=== PATIENT | female | born 1985 | race Caucasian/White ===

== ENCOUNTER → 2018-01-12 14:11 | Outpatient (CLI) | payer BC, SELFPAY ==
--- NOTE | 2018-01-12 14:17 | XR_ITS ---
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 The third from the bottom screw is not flush with the bone plate. It is unknown whether this is something new or has been present since the surgery as no old films are available for review. A lucency is not evident medial to the tip of this screw. Correlation with old films are needed. The SI joints have an unremarkable appearance IMPRESSION: 1. Unremarkable SI joints. 2. Bone plate along the left ilium and acetabulum as described above
--- NOTE | 2018-01-12 14:17 | XR_ITS ---
XR pelvis 1-2V HISTORY: Fall with injury and pain ITS.REASON: PELVIS VIEWS FOR INJURY ORDERING PHYSICIAN: Kvng Cook MD PATIENT AGE: 32 years Comparison: None FINDINGS: Prior ORIF of the left pelvis with a bone plate present along the lower ileum overlying the acetabulum and upper ischium and the third from the bottom screw of the plate is not flush with the plate and could be related to distraction or Meylan be related to the postoperative appearance. There are no old films available for review. Otherwise negative. IMPRESSION: Left-sided bone plate present as described above with possible distraction of the third from the bottom screw. Correlation with old films are needed
== END ==
PROVIDERS: Visit Provider Obstetrics & Gynecology
DX: S38.1XXA Crushing injury of abdomen, lower back, and pelvis, initial encounter (principal)
CPT/HCPCS: 72170; 72202

== ENCOUNTER → 2018-06-05 11:21 | Outpatient (CLI) | payer BC, SELFPAY ==
[2018-06-05 11:59] LABS: Basophils # 0.1 K/mm3 (0-0.2); Basophils % 0.6 % (0.1-2.0); Eosinophils # 0.2 K/mm3 (0.0-0.4); Eosinophils % 3.2 % (0.1-12.0); Hematocrit 39.7 % (37.0-47.0); Hemoglobin 13.4 g/dL (12.2-16.2); Lymphocytes # 1.9 K/mm3 (0.7-4.5); Lymphocytes % 24.6 % (10-50); Mean Corpuscular HGB Conc 33.9 g/dL (31.8-35.4); Mean Corpuscular Hemoglobin 32.3 pg (27.0-31.2); Mean Corpuscular Volume 95.3 fl (81-99); Mean Platelet Volume 7.7 fl (7.4-10.4); Monocytes # 0.6 K/mm3 (0.1-1.0); Monocytes % 8.2 % (1.7-9.3); Neutrophils # 4.9 K/mm3 (1.8-7.8); Neutrophils % 63.4 % (37.0-80.0); Platelet Count 323 K/mm3 (142-424); Red Blood Count 4.16 M/mm3 (4.20-5.40); Red Cell Distribution Width 12.3 % (11.5-17.5); White Blood Count 7.7 K/mm3 (4.8-10.8)
[2018-06-05 14:19] LABS: Thyroid Stimulating Hormone 2.28 uIU/ml (0.358-3.740)
[2018-06-05 16:24] LABS: Amphetamine/Metha Screen,Urine Negative ng/mL (<1000); Barbiturates Screen,Urine Negative ng/mL (<200); Benzodiazepines Screen,Urine Negative ng/mL (<200); Cannabinoid Screen,Urine Negative ng/mL (<50); Cocaine Screen,Urine Negative ng/mL (<300); Methadone Screen,Urine Negative ng/mL (<300); Opiate Screen,Urine Negative ng/mL (<300); Phencyclidine Screen,Urine Negative ng/mL (<25)
[2018-06-06 08:16] LABS: HIV Screen 4th Generation wRfx Non Reactive (Non Reactive)
[2018-06-06 08:18] LABS: Rapid Plasma Reagin Ab Titer Non Reactive (NonRea<1:1)
[2018-06-07 07:10] LABS: Hepatitis B Surface Antigen Negative (Negative); Hepatitis C Antibody <0.1 s/co ratio (0.0-0.9); Rubella Antibodies, IgG <0.90 index (Immune >0.99)
== END ==
PROVIDERS: Visit Provider Obstetrics & Gynecology
DX: Z34.90 Encounter for supervision of normal pregnancy, unspecified, unspecified trimester (principal)
CPT/HCPCS: 36415; 80305; 84443; 85025; 86592; 86703; 86762; 86850; 87340; 87380; G0432

== ENCOUNTER 2021-05-22 12:41 | Emergency (ER) | payer BC, SELFPAY ==
[2021-05-22 14:24] VITALS: BP 122/72; PULSE 89; RESP 18; TEMP 36.8; O2SAT 99; BMI 25.0
--- NOTE | 2021-05-22 14:42 | HMH.EDUTC ---
[facility] – [place] Disposition Clinical Impression: Cellulitis Qualifiers: Site of cellulitis: extremity Site of cellulitis of extremity: upper extremity Laterality: left Qualified Code(s): L03.114 - Cellulitis of left upper limb Contact dermatitis Qualifiers: Contact dermatitis type: unspecified Contact dermatitis trigger: unspecified trigger Qualified Code(s): L25.9 - Unspecified contact dermatitis, unspecified cause Disposition: Home, Self-Care Condition on Discharge: Good Instructions: Cellulitis, DI for Contact Dermatitis Additional Instructions: Apply the topical antibiotic ointment (muprocin) as directed. Don't put the topical steroids (triamcinolone) on your face or your groin. Follow up with your regular doctor. GO TO THE ER FOR ANY WORSENING SYMPTOMS OR CONCERNS Prescriptions: Sulfamethoxazole/Trimethoprim [Bactrim DS tablet] 1 each PO BID 10 Days #20 tab Transmission Status: Received by [id number] Mupirocin [Bactroban 2% Ointment 22gm tube] 1 applicatio TP TID 7 Days #1 gm Transmission Status: Received by [id number] methylPREDNISolone [Medrol] 4 mg PO DIRECTED 6 Days #21 packet Transmission Status: Received by [id number] Triamcinolone Acetonide 1 applicatio TP TIDP PRN 7 Days #1 gm PRN Reason: Itching Transmission Status: Received by [id number] Referrals: Ana Berumen PA [Primary Care Provider] - Forms: Work/School Release Time of Disposition: 14:52 Medical Decision Making - Medical Records Medical records reviewed: No: I reviewed the patient's medical records. - Eren Inquiry Pt receiving controlled substance: No Vital Signs: 05/22/21 14:24 05/22/21 15:02 Temperature 98.2 F 98.2 F Temperature Source Oral Pulse Rate 89 Pulse Rate [Left] 89 Respiratory Rate 18 18 Blood Pressure 122/72 Blood Pressure [Right Arm] 122/72 Blood Pressure Mean [Right Arm] 88 02 Sat by Pulse Oximetry 99 Orders (Tests/Meds): ORDERS Category Date Time Status Wound Culture and Gram Stain Stat Micro 05/22/21 14:55 Results [facility] – [place] HPI - General Stated complaint: rash on L arm Time Seen by Provider: 05/22/21 14:40 Mode of Arrival: Ambulatory Source of Information: Patient Limitations: No Limitations Description of Symptoms (Recalled from Triage Doc. by RN): pt c/o a rash on her L arm that has been there about a week. HEENT Symptoms (Recalled from RN notes): No Resp Symptoms (Recalled from RN notes): No Skin Symptoms (Recalled from RN notes): Yes MS Symptoms (Recalled from RN notes): No Functional Status (Recalled from RN notes): wnl - History of Present Illness Provider Complaint: She states that she has multiple bug bite on her left upper arm. She first noted these yesterday. She states they are itching and they are painful. She denies any other complaints. - Related Data Home Medications Medication Instructions Recorded Confirmed vitamin-ferrous sulfate tab PO tab 06/05/18 06/19/18 27 mg iron-folic acid 0.8 mg tablet Previous Rx's Medication Instructions Recorded ferrous sulfate 325 mg (65 mg 325 mg PO DAILY #30 tab 06/05/18 iron) tablet Mupirocin [Bactroban 2% Ointment 1 applicatio TP TID 7 Days #1 gm 05/22/21 22gm tube] Sulfamethoxazole/Trimethoprim 1 each PO BID 10 Days #20 tab 05/22/21 [Bactrim DS tablet] Triamcinolone Acetonide 1 applicatio TP TIDP PRN 7 Days #1 05/22/21 gm methylPREDNISolone [Medrol] 4 mg PO DIRECTED 6 Days #21 05/22/21 packet Allergies Allergy/AdvReac Type Severity Reaction Status Date / Time levofloxacin [From Levaquin] Allergy Verified 06/19/18 10:23 - Worker's Comp Is this a Worker's Comp case?: No [facility] History - Hepatitis A Screen Drug use history?: No High risk sexual behaviors?: No History of sexually transmitted infection?: No Currently employed?: No Childcare worker?: No Do you have indoor plumbing?: Yes Do you have electricity?: Yes A
[2021-05-22 15:02] VITALS: BP 122/72; PULSE 89; RESP 18; TEMP 36.8
== END 2021-05-22 15:05 | disposition home or self-care (01) ==
PROVIDERS: Emergency Provider Nurse Practitioner Family; PCP Physician Assistant
DX: L03.114 Cellulitis of left upper limb (principal); L25.9 Unspecified contact dermatitis, unspecified cause; R21 Rash and other nonspecific skin eruption; N76.0 Acute vaginitis; F17.210 Nicotine dependence, cigarettes, uncomplicated; Z79.52 Long term (current) use of systemic steroids; Z79.899 Other long term (current) drug therapy; Z88.8 Allergy status to other drugs, medicaments and biological substances
CPT/HCPCS: 87070; 87077; 87186; 87205; 99213; G0463

== ENCOUNTER 2023-07-27 14:54 | Observation (INO) | payer OTHER, SELFPAY ==
[2023-07-27] VITALS (9 sets, daily range): BP systolic 96–139; BP diastolic 52–87; PULSE 74–132; RESP 14–16; TEMP 36.6–37.7; O2SAT 95–99; BMI 28.5
--- NOTE | 2023-07-27 14:55 | ED_ITS ---
<Statement entered by Renard Gauthier MD - 07/27/23 17:15> I was consulted by the KHADRA, and we discussed the complexity of the problems being addressed. I approved the treatment and management plan for this patient's care in the emergency department, thus performing a substantive portion of the medical decision making. Patient has CT proven pyelonephritis however her urine is clean which may be reflective of the oral antibiotics sterilizing her urine however having persistent pyelonephritis. She meets sepsis criteria. She also has vaginal discharge. I was about to swab her cervix and send it off however she showed me that she recently had swabs including gonorrhea, chlamydia, trichomonas, bacterial vaginosis, Shy which were all negative and it will be deferred until gynecology evaluates. She is not on true PID coverage given possibility of pyelonephritis however she is on appropriate gram-positive, gram-negative, anaerobic, and atypical coverage. Renard Gauthier MD Discharge Plan Disposition Patient Disposition: Admitted Condition: Serious Clinical Impressions Clinical Impression: Sepsis without septic shock, Pyelonephritis Discharge ED Provider: Renard Gauthier General Adult HPI General Chief complaint: Urogenital-Female Stated complaint: PCP referral, Kidney, Vomiting, swelling BA, Chill Time Seen by Provider: 07/27/23 14:55 History of Present Illness HPI narrative: Patient presents for evaluation of abdominal pain, nausea, vomiting, no diarrhea, vaginal discharge and headache. Patient reports that she was diagnosed at an urgent treatment center with a urinary tract infection 6 weeks ago and placed on Macrobid. She went back a few days ago and placed on Bactrim and has had bodyaches fever chills nausea vomiting and a headache. Patient noted that her temperature was 100.1 last night at home. She was seen by her PCP today who noted her to be tachycardic and afebrile and ultimately sent her here for further evaluation in the office. Patient reiterates the above complaints and denies chest pain chills hemoptysis hematochezia melena diarrhea Related Data Home Medications Medication Instructions Recorded Confirmed bupropion HCl 300 mg 24 hr tablet, mg PO 07/27/23 07/27/23 extended release buspirone 15 mg tablet mg PO 07/27/23 07/27/23 fluconazole 150 mg tablet mg PO 07/27/23 07/27/23 Allergies Allergy/AdvReac Type Severity Reaction Status Date / Time levofloxacin [From Levaquin] Allergy Verified 07/27/23 15:22 [facility] Disclaimer: The information contained in this section may have been updated after the patient was seen, as this information can be updated by other users. Social History Smoking Status: Current every day smoker tobacco type: cigarettes packs per day: 1 alcohol intake: current alcohol intake frequency: a few times a month substance use type: denies use current occupational status: unemployed Travel in the last 8 weeks: Inside the [place] ROS Obtained: Yes Systems reviewed as appropriate & no additional complaints except as documented Physical Exam General General appearance: alert and in no apparent distress Head Head exam: atraumatic and normal inspection Eye Eye exam: Present normal appearance, PERRL and EOMI ENT ENT exam: Present normal exam, normal oropharynx and mucous membranes moist Neck Neck exam: Present normal inspection and full ROM; Absent lymphadenopathy Chest Chest inspection: Present normal inspection and symmetric chest wall rise Respiratory Respiratory exam: Present normal lung sounds bilaterally Cardiovascular Cardiovascular exam: Present normal rhythm, tachycardia and normal heart sounds Abdominal Exam Abdominal exam: Present soft, tenderness (Tender diffusely throughout the abdomen without rebound or guarding or rigidity.) and normal bowel sounds; Absent guarding, rebound or rigidity Extremities Exam Extremities exam: Present normal inspection and full ROM Back Exam Back exam: Present normal inspection, full ROM, tenderness, CVA tenderness (R) and CVA tenderness (L) Neurological Exam Neurological exam: Present alert, oriented X3 and CN II-XII intact Skin Skin exam: Present warm, normal color and diaphoresis Medical Decision Making Medical Records Medical records reviewed: Yes I reviewed the patient's medical records. Eren Inquiry Pt receiving controlled substance: No Vital Signs: 07/27/23 15:14 07/27/23 15:30 07/27/23 16:00 Temperature 100 F H Temperature Source Oral Pulse Rate 119 H 108 H Pulse Rate [Left] 132 H Respiratory Rate 14 Blood Pressure 117/61 111/61 Blood Pressure [Right Arm] 139/87 Blood Pressure Mean [Right Arm] 104 Blood Pressure Source [Right Arm] Automatic Cuff Blood Pressure Position [Right Arm] Sitting 02 Sat by Pulse Oximetry 99 97 97 Oxygen Delivery Method Room Air Lab Data Lab results reviewed: Yes I reviewed the patient's lab results. Lab Results 07/27/23 15:12: WBC 17.6 H, RBC 3.97 L, Hgb 12.4, Hct 39.0, MCV 98.5, MCH 31.4 H , MCHC 31.9, RDW 13.8, Plt Count 428 H, MPV 7.6, Neut % (Auto) 85.3 H, Lymph % (Auto) 7.4 L, [place] % (Auto) 5.4, Eos % (Auto) 1.3, Baso % (Auto) 0.6, Neut # (Auto) 15.0 H, Lymph # (Auto) 1.3, [place] # (Auto) 1.0, Eos # (Auto) 0.2, Baso # (Auto) 0.1, Total Counted 100, Neutrophils % (Manual) 86 H, Lymphocytes % (Manual) 6 L, Monocytes % (Manual) 8, Platelet Estimate Normal, RBC Morphology Normal, Sodium 135 L, Potassium 4.0, Chloride 104, Carbon Dioxide 21 L, Anion Gap 14.0, BUN 8, Creatinine 0.80, Estimated Creat Clear 125, Estimated GFR 81, Est GFR ( Amer) 98, Glucose 116 H, Calcium 9.3, Magnesium 1.9, Total Bilirubin 0.6, AST 26, ALT 33, Alkaline Phosphatase 74, Total Protein 7.7, Albumin 4.4, Globulin 3.3 H, Albumin/Globulin Ratio 1.3, Procalcitonin 0.061, Serum HCG, Qual Negative 07/27/23 15:20: Lactate 0.7 07/27/23 15:26: Lipase 32 07/27/23 15:43: Urine Color Yellow, Urine Appearance Clear, Urine pH 6.0, Ur Specific [place] 1.025, Urine Protein Negative, Urine Glucose (UA) Negative, Urine Ketones Negative, Urine Blood 1+, Urine Nitrate Negative, Urine Bilirubin Negative, Urine Urobilinogen 0.2, Ur Leukocyte Esterase Negative, Urine RBC None, Urine WBC 3-5, Ur Squamous Epith Cells 3-5, Urine Bacteria Trace 07/27/23 15:12 07/27/23 15:12 Orders (Tests/Meds): ED MEDICATIONS Generic Name Dose Route Start Last Admin Trade Name Freq PRN Reason Stop Dose Admin Ceftriaxone Sodium 1 gm/ 50 mls @ 100 mls/hr 07/27/23 16:00 Sodium Chloride IV 08/06/23 15:59 Q24H RAMAKRISHNA Discontinued Medications Generic Name Dose Route Start Last Admin Trade Name Freq PRN Reason Stop Dose Admin Acetaminophen 1,000 mg 07/27/23 14:59 07/27/23 15:27 Acetaminophen 1,000mg/100ml Vial IV 07/27/23 15:00 1,000 mg ONCE ONE Administration Dexamethasone Sodium Phosphate 10 mg 07/27/23 15:07 07/27/23 15:27 Dexamethasone 4mg/Ml 5ml Mdv IV 07/27/23 15:08 10 mg ONCE ONE Administration Diphenhydramine HCl 50 mg 07/27/23 15:07 07/27/23 15:27 Diphenhydramine 50mg/Ml Vial IV 07/27/23 15:08 50 mg ONCE ONE Administration Lactated Ringer's 1,000 mls @ 999 mls/hr 07/27/23 14:59 07/27/23 15:27 Lactated Ringer's 1000 Ml Bag IV 07/27/23 15:59 999 mls/hr .Q1H1M ONE Administration Piperacillin Sod/Tazobactam 50 mls @ 100 mls/hr 07/27/23 15:35 07/27/23 16:04 Sod 3.375 gm/ Sodium Chloride IV 07/27/23 16:04 Not Given ONCE ONE Metronidazole 500 mg in 100 mls @ 100 mls/hr 07/27/23 15:47 07/27/23 16:07 Flagyl 500mg/100ml Ivpb IV 07/27/23 16:46 100 mls/hr ONCE ONE Administration Doxycycline Hyclate 100 mg/ 250 mls @ 166.667 mls/hr 07/27/23 15:47 07/27/23 16:30 Sodium Chloride IV 07/27/23 15:48 166.667 mls/hr ONCE ONE Administration Iopamidol 75 ml 07/27/23 16:02 07/27/23 16:03 Iopamidol-370 (76%);100ml Bottle IV 07/27/23 16:03 75 ml ONCE ONE Administration Prochlorperazine Edisylate 10 mg 07/27/23 15:07 07/27/23 15:27 Prochlorperazine 10mg/2ml Vial IV 07/27/23 15:08 10 mg ONCE ONE Administration Sodium Chloride 10 ml 07/27/23 16:02 07/27/23 16:03 Sodium Chloride 0.9% 10ml Syr (Rad Only) IV 07/27/23 16:03 10 ml ONCE ONE Administration ORDERS Category Date Time Status CT abdomen pelvis w con Stat Cat Scan 07/27/23 15:05 Completed Chest XR -- portable [XR chest portable] Stat Exams 07/27/23 15:06 Completed CBC w/Auto Diff [Complete Blood Count Auto Diff] Stat Lab 07/27/23 15:12 Completed CMP [Comprehensive Metabolic Panel] Stat Lab 07/27/23 15:12 Completed HCG Qualitative, Serum Stat Lab 07/27/23 15:12 Completed Lactic Acid Stat Lab 07/27/23 15:20 Completed Lipase Stat Lab 07/27/23 15:26 Completed Magnesium Stat Lab 07/27/23 15:12 Completed Procalcitonin Stat Lab 07/27/23 15:12 Completed Trichomonas Vaginalis, ABBIE Stat Lab 07/27/23 17:01 Ordered UA [Urinalysis and Microscopic] Stat Lab 07/27/23 15:43 Completed Anaerobic Culture+Gram Stain Stat Micro 07/27/23 17:03 Ordered Blood Culture Stat Micro 07/27/23 15:20 Received Genital Culture and Gram Stain Stat Micro 07/27/23 17:03 Ordered Urine Culture Routine Micro 07/27/23 15:19 Received Medical Decision Narrative: In summary patient is a 38-year-old female who presents to the emergency department for evaluation of fever dysuria vaginal discharge and swelling. Patient is normotensive with a blood pressure 139/87 tachycardic at 132 satting at 99% on room air breathing 14 times a minute upon arrival, with a temperature of 100 on arrival. Physical exam is remarkable for diaphoresis, diffuse abdominal tenderness to palpation without rebound or guarding or rigidity, bilateral CVA tenderness to percussion. Patient reports vaginal discharge but pelvic exam was deferred. Differential diagnosis includes complicated urinary tract infection versus pyelonephritis versus pelvic inflammatory disease versus sepsis etc. Initial workup will be conducted with hematologic labs, urinalysis with culture, CT scan of the abdomen pelvis and chest x-ray. Initial interventions include crystalloid bolus Toradol Tylenol Benadryl Decadron Compazine. Initial workup reviewed by me shows patient is significantly elevated white count with left shift but normal creatinine and BUN and GFR. The remainder of her laboratory investigation are nonactionable CT scan via my informal interpretation shows probable right-sided pyelonephritis prior to radiology read. Upon repeat evaluation she reports significant constitutional improvement after initial interventions. Given this I had an interactive discussion with hospital medicine about patient management and patient will be admitted for further evaluation and care Critical Care Critical Care Time Critical Care Time: No
--- NOTE | 2023-07-27 15:05 | CT_ITS ---
FINAL REPORT TECHNIQUE: Postcontrast axial images through the abdomen and pelvis were performed. This study was performed with techniques to keep radiation doses as low as reasonably achievable, (ALARA). Individualized dose reduction techniques using automated exposure control or adjustment of mA and/or kV according to the patient's size were employed. CLINICAL HISTORY: Abdominal pain, nausea vomiting FINDINGS: Abdomen: The lung bases are clear. There is prominent asymmetric breast parenchyma of uncertain significance. The liver is normal in size and attenuation. There is mild nonspecific gallbladder wall thickening. The spleen is unremarkable. The adrenals are normal. The pancreas is unremarkable. There is mild heterogeneity of enhancement of the right kidney of uncertain significance but worrisome for acute pyelonephritis. The left kidney is unremarkable. The aorta is normal in caliber. No free fluid or adenopathy is identified. No findings for mechanical bowel obstruction are identified. Pelvis: The appendix is not identified. There is a probable right corpus luteum cyst measuring 16 mm. Postoperative changes are seen in the left pelvis. The urinary bladder is unremarkable. No free fluid, free air, abscess or adenopathy is identified. IMPRESSION: Findings worrisome for right pyelonephritis. Prominent asymmetric breast parenchyma. Recommend correlation with mammogram. Probable right corpus luteum cyst. Reviewed, Interpreted and Dictated by Surinder Garcia III, MD Transcribed by Kady Millard Authenticated and [facility]
--- NOTE | 2023-07-27 15:06 | XR_ITS ---
FINAL REPORT CLINICAL HISTORY: Nausea vomiting FINDINGS: SINGLE-VIEW CHEST The heart size is normal. The mediastinum is normal. The lungs are clear. There is no pneumothorax. IMPRESSION: No acute cardiopulmonary process. Reviewed, Interpreted and Dictated by Surinder Garcia III, MD Transcribed by Kady Millard Authenticated and . [facility]
[2023-07-27 15:22] LABS: Basophils # 0.1 K/mm3 (0-0.2); Basophils % 0.6 % (0.1-2.0); Eosinophils # 0.2 K/mm3 (0.0-0.4); Eosinophils % 1.3 % (0.1-12.0); Hemoglobin 12.4 g/dL (12.2-16.2); Lymphocytes # 1.3 K/mm3 (0.7-4.5); Lymphocytes % 7.4 % (10-50); Mean Corpuscular HGB Conc 31.9 g/dL (31.8-35.4); Mean Corpuscular Hemoglobin 31.4 pg (27.0-31.2); Mean Corpuscular Volume 98.5 fl (81-99); Mean Platelet Volume 7.6 fl (7.4-10.4); Monocytes % 5.4 % (1.7-9.3); Neutrophils % 85.3 % (37.0-80.0); Platelet Count 428 K/mm3 (142-424); Red Blood Count 3.97 M/mm3 (4.20-5.40); Red Cell Distribution Width 13.8 % (11.5-17.5); White Blood Count 17.6 K/mm3 (4.8-10.8)
[2023-07-27] MEDS: ACETAMINOPHEN 1,000MG/100ML VIAL 1000 MG IV (15:27)
[2023-07-27] MEDS: DEXAMETHASONE 4MG/ML 5ML MDV 10 MG IV (15:27)
[2023-07-27] MEDS: LACTATED RINGERS 1000ML 1,000 ML 999 ML IV (15:27)
[2023-07-27] MEDS: PROCHLORPERAZINE 10MG/2ML VIAL 10 MG IV (15:27)
[2023-07-27] MEDS: diphenhydrAMINE 50MG/ML VIAL 50 MG IV (15:27)
[2023-07-27 15:28] LABS: Alanine Aminotransferase 33 U/L (12-78); Albumin Level 4.4 g/dl (3.5-5.0); Albumin/Globulin Ratio 1.3 (1.1-1.8); Alkaline Phosphatase 74 U/L (38-126); Aspartate Amino Transferase 26 U/L (14-36); Bilirubin,Total 0.6 mg/dl (0.2-1.3); Blood Urea Nitrogen 8 mg/dl (7-17); Calcium 9.3 mg/dl (8.4-10.2); Carbon Dioxide 21 mmol/L (22.0-30.0); Chloride 104 mmol/L (98-107); Creatinine Clearance Estimated 125 mL/min (50-200); Estimated Glomerular Filt Rate 81 ml/min (>60); GFR (African American) 98 ML/MIN (>60); Globulin 3.3 g/dL (1.3-3.2); Glucose 116 mg/dl (74-100); Magnesium 1.9 mg/dl (1.6-2.3); Sodium 135 mmol/L (136-145); Total Protein,Serum 7.7 g/dl (6.3-8.2)
[2023-07-27 15:32] LABS: HCG Qualitative, Serum Negative (Negative)
[2023-07-27 15:33] LABS: MANUAL DIFFERENTIAL MANUAL DIFFERENTIAL (MANUAL DIFF)
[2023-07-27 15:43] LABS: Lipase 32 U/L (23-300)
[2023-07-27 15:45] LABS: Procalcitonin 0.061 ng/mL (0.0-2.0)
[2023-07-27 15:47] LABS: Microscopic, Urine URINE MICROSCOPIC (MICROSCOPIC)
[2023-07-27 15:56] LABS: Lactic Acid 0.7 mmol/L (0.7-2.1)
[2023-07-27 15:58] LABS: Appearance,Urine CLEAR (Clear); Bilirubin,Urine Negative (Negative); Blood, Urine 1+ (Negative); Color,Urine YELLOW (Yellow); Glucose,Urine (UA) Negative (Negative); Ketones,Urine Negative (Negative); Leukocyte Esterase,Urine Negative (Negative); Nitrate,Urine Negative (Negative); Protein,Urine Negative (Negative); Specific Gravity, Urine 1.025 (1.005-1.030); Urobilinogen,Urine 0.2 EU/dl (0.2)
[2023-07-27] MEDS: SODIUM CHLORIDE 0.9% 10ML SYR (RAD ONLY) 10 ML IV (16:03)
[2023-07-27] MEDS: IOPAMIDOL-370 (76%);100ML BOTTLE 75 ML IV (16:03)
[2023-07-27] MEDS: METRONIDAZ/SOD CHL 500 MG/100 ML PIGGYBACK 100 MG IV (16:07)
[2023-07-27 16:08] LABS: Bacteria,Urine Trace /lpf
[2023-07-27 16:13] LABS: Lymphocytes % 6 % (10-50); Monocytes % 8 % (2-9); Neutrophils % 86 % (42-76); Total Cells Counted 100
[2023-07-27 16:18] LABS: Platelet Estimate Normal; RBC Morphology Normal
[2023-07-27] MEDS: DOXYCYCLINE HYCLATE 100 MG in 0.9 % SODIUM CHLORIDE 250 ML 166.667 MG IV (16:30)
--- NOTE | 2023-07-27 17:00 | PC.NURSE ---
notified the housekeeping staff of the need for a bed to admit for sepsis and pylonephritis.
--- NOTE | 2023-07-27 17:34 | PC.NURSE ---
Report called to [facility]
--- NOTE | 2023-07-27 17:40 | PC.NURSE ---
170 Dr. Gauthier states he wants to do 4vaginal swabs delaying the pts admission. Swabs however, were not done due to them recently completed by her OB. Report called to med/surg as soon as the pt was ready to d/c from MD stand point.
[2023-07-27] MEDS: LACTATED RINGERS 1000ML 1,000 ML 50 ML IV (18:46)
[2023-07-27] MEDS: ENOXAPARIN 40MG/0.4ML SYRINGE 40 MG SQ (18:46)
[2023-07-27] MEDS: CEFTRIAXONE SODIUM 1 GM in 0.9 % SODIUM CHLORIDE 50 ML IV (18:47)
--- NOTE | 2023-07-27 19:33 | EXP.HP ---
History of Present Illness *Admission Date: 07/27/23 *Reason for visit:: Abdominal pain *History of present illness: This is a 38-year-old female with past medical history of depression, anxiety who presents emergency department today with complaints of abdominal pain and back pain. She reports she has had a urinary tract infection and been treated with Bactrim in the last week. She also has reported some vaginal discharge. She reports seeing her NECKTIE STITCHER for her annual appointment and underwent BV and STD testing which was all negative. She reports since being on the Bactrim she has had continued suprapubic pain, upper back pain, headache and nausea. Denies any fever. Emergency department workup notable for right-sided pyelonephritis as noted on CT. white blood cell count of 17. Mildly tachycardic on arrival but otherwise vital signs stable. Given her continued symptoms and pyelonephritis, she was treated with IV antibiotics admitted to the hospital service for further evaluation management. [facility] Disclaimer: The information contained in this section may have been updated after the patient was seen, as this information can be updated by other users. Medical History Urinary tract infection Surgical History Status post open reduction and internal fixation (ORIF) of fracture History of section Family History Other Family history of cancer Social History Smoking Status: Current every day smoker tobacco type: cigarettes packs per day: 1 alcohol intake: current alcohol intake frequency: a few times a month substance use type: denies use current occupational status: employed Travel in the last 8 weeks: Inside the [place] Review of Systems Review of Systems Review of systems (narrative): All negative except for HPI Meds Home Medications and Allergies Home Medications Medication Instructions Recorded Confirmed Type bupropion HCl 300 mg 24 hr tablet, 300 mg PO DAILY 07/27/23 07/27/23 History extended release buspirone 15 mg tablet 15 mg PO DAILY 07/27/23 07/27/23 History fluconazole 150 mg tablet 150 mg PO QODHS 07/27/23 07/27/23 History sulfamethoxazole 800 1 tab PO BID 07/27/23 07/27/23 History mg-trimethoprim 160 mg tablet sulfamethoxazole 800 1 tab PO BID 07/27/23 07/27/23 History mg-trimethoprim 160 mg tablet New Prescriptions to Start Prescriptions: Allergies Allergy/AdvReac Type Severity Reaction Status Date / Time levofloxacin [From Levaquin] Allergy Verified 07/27/23 15:22 Exam Data for Last 24 hours Vital signs and Labs for Last 24 Hours: Temp Pulse Resp BP Pulse Ox O2 Del Method 98 F 74 16 105/52 L 96 Room Air 07/27/23 17:55 07/27/23 17:55 07/27/23 17:55 07/27/23 17:55 07/27/23 17:55 07/27/23 18:53 Laboratory Results - last 24 hr 07/27/23 15:12: WBC 17.6 H, RBC 3.97 L, Hgb 12.4, Hct 39.0, MCV 98.5, MCH 31.4 H, MCHC 31.9, RDW 13.8, Plt Count 428 H, MPV 7.6, Neut % (Auto) 85.3 H, Lymph % (Auto) 7.4 L, [place] % (Auto) 5.4, Eos % (Auto) 1.3, Baso % (Auto) 0.6, Neut # (Auto) 15.0 H, Lymph # (Auto) 1.3, [place] # (Auto) 1.0, Eos # (Auto) 0.2, Baso # (Auto) 0.1, Total Counted 100, Neutrophils % (Manual) 86 H, Lymphocytes % (Manual) 6 L, Monocytes % (Manual) 8, Platelet Estimate Normal, RBC Morphology Normal, Sodium 135 L, Potassium 4.0, Chloride 104, Carbon Dioxide 21 L, Anion Gap 14.0, BUN 8, Creatinine 0.80, Estimated Creat Clear 125, Estimated GFR 81, Est GFR ( Amer) 98, Glucose 116 H, Calcium 9.3, Magnesium 1.9, Total Bilirubin 0.6, AST 26, ALT 33, Alkaline Phosphatase 74, Total Protein 7.7, Albumin 4.4, Globulin 3.3 H, Albumin/Globulin Ratio 1.3, Procalcitonin 0.061, Serum HCG, Qual Negative 07/27/23 15:20: Lactate 0.7 06/13/24 15:26: Lipase 32 07/27/23 15:43: Urine Color Yellow, Urine Appearance Clear, Urine pH 6.0, Ur Specific [place] 1.025, Urine Protein Negative, Urine Glucose (UA) Negative, Urine Ketones Negative, Urine Blood 1+, Urine Nitrate Negative, Urine Bilirubin Negative, Urine Urobilinogen 0.2, Ur Leukocyte Esterase Negative, Urine RBC None, Urine WBC 3-5, Ur Squamous Epith Cells 3-5, Urine Bacteria Trace I & O for Last 24 hours: Intake & Output 07/24/23 07/25/23 07/26/23 07/27/23 23:59 23:59 23:59 23:59 Output Total 0 / 0 Balance 0 / 0 Weight 82.55 kg Constitutional Constitutional: no acute distress *Routine HEENT Exam Head: Present normocephalic Eye: Present EOMI and PERRL ENT: Present mucous membranes moist *Routine Neck Exam Neck: Present supple; Absent lymphadenopathy *Routine Respiratory Exam Respiratory: Present CTA bilaterally *Routine Cardiovascular Exam Cardiovascular: Present RRR *Routine Abdominal Exam Abdominal: Present soft and normoactive bowel sounds; Absent tenderness *Routine Rectal Exam Rectal:: deferred *Routine Genitalia Exam Genitalia:: deferred *Routine Extremities Exam Extremities: Absent cyanosis, clubbing or edema Routine Back/Spine/Pelvis Exam Back/Spine: Present CVA tenderness *Routine Skin Exam Skin: Present warm; Absent rash *Routine Neurological Exam Neurological: Present alert and oriented X3 Assessment and Plan *Assessment and plan (1) Pyelonephritis: Status: Acute Category: Medical Code(s): N12 - Tubulo-interstitial nephritis, not specified as acute or chronic (2) Sepsis without septic shock: Status: Acute Category: Medical Code(s): A41.9 - Sepsis, unspecified organism Plan Admit to medicine # Sepsis without septic shock #Pyelonephritis #Vaginal discharge Meets criteria for leukocytosis, tachycardia and positive infection of pyelonephritis Lactic acid negative Blood cultures obtained Urinalysis without overt infection but has been on antibiotics for the last 5 days Will send for urine culture Continue cefepime, will broaden with doxycycline as well for possible PID coverage GAMING FLOOR SUPERVISOR consulted, appreciate recommendations Continue maintenance IV fluids Antiemetics and pain medications. DVT PPx Lovenox Full code
[2023-07-27] MEDS: CEFEPIME HCL 2 GM in 0.9 % SODIUM CHLORIDE 100 ML IV (20:02)
[2023-07-28] VITALS: BP 109/59; PULSE 87; RESP 16; TEMP 36.9; O2SAT 97
[2023-07-28] MEDS: CEFEPIME HCL 2 GM in 0.9 % SODIUM CHLORIDE 100 ML IV ×3 (02:30→16:57)
[2023-07-28 04:00] VITALS: BP 104/53; PULSE 89; RESP 16; TEMP 36.9; O2SAT 97; BMI 29.0
[2023-07-28] MEDS: KETOROLAC 30MG/ML VIAL 15 MG IV ×3 (04:46→22:05)
[2023-07-28 07:12] LABS: Chloride 108 mmol/L (98-107)
[2023-07-28 07:13] LABS: Potassium 3.7 mmoL/L (3.5-5.1); Sodium 136 mmol/L (136-145)
[2023-07-28 07:15] LABS: Blood Urea Nitrogen 12 mg/dl (7-17); Creatinine Clearance Estimated 146 mL/min (50-200); Estimated Glomerular Filt Rate 94 ml/min (>60); GFR (African American) 114 ML/MIN (>60)
[2023-07-28 07:16] LABS: Anion Gap 9.7 mEq/L (5-15); Carbon Dioxide 22 mmol/L (22.0-30.0); Glucose 155 mg/dl (74-100)
[2023-07-28 07:22] LABS: Basophils % 0.2 % (0.1-2.0); Monocytes # 0.9 K/mm3 (0.1-1.0); Red Blood Count 3.36 M/mm3 (4.20-5.40)
[2023-07-28 07:55] LABS: Hematocrit 33.3 % (37.0-47.0); Lymphocytes # 1.2 K/mm3 (0.7-4.5); Lymphocytes % 10.4 % (10-50); Mean Corpuscular Hemoglobin 31.8 pg (27.0-31.2); Mean Corpuscular Volume 99.1 fl (81-99); Mean Platelet Volume 8.7 fl (7.4-10.4); Monocytes % 7.1 % (1.7-9.3); Neutrophils # 9.8 K/mm3 (1.8-7.8); Neutrophils % 82.3 % (37.0-80.0); Platelet Count 411 K/mm3 (142-424); Red Cell Distribution Width 13.5 % (11.5-17.5)
--- NOTE | 2023-07-28 07:59 | HMH.PHAINT1 ---
Pharmacy Intervention Comments: HOME MEDICATION LIST VERIFIED USING LIST FROM OUTPATIENT PHARMACY AND PT INTERVIEW
[2023-07-28 08:00] VITALS: BP 109/53; PULSE 69; RESP 16; TEMP 36.7; O2SAT 98
[2023-07-28] MEDS: DOXYCYCLINE HYCL 100 MG TABLET PO ×2 (08:41→20:34)
[2023-07-28] MEDS: BUSPIRONE HCL 10 MG TABLET 15 MG PO ×2 (08:41→23:10)
[2023-07-28] MEDS: ENOXAPARIN 40MG/0.4ML SYRINGE 40 MG SQ (09:58)
[2023-07-28 11:07] LABS: Hemoglobin 10.7 g/dL (12.2-16.2)
[2023-07-28 11:55] VITALS: BP 131/83; PULSE 79; RESP 16; TEMP 36.8; O2SAT 96
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
--- NOTE | 2023-07-28 15:54 | EXP.PN ---
Subjective *Date: 07/28/23 *Time: 15:54 Interval history: seen at bedside, denied CP, SOB, mentions feels better, pain is better but still has back pain Exam Data for Last 24 hours Vital signs and Labs for Last 24 Hours: Temp Pulse Resp BP Pulse Ox O2 Del Method 98.3 F 79 16 131/83 96 Room Air 07/28/23 11:55 07/28/23 11:55 07/28/23 11:55 07/28/23 11:55 07/28/23 11:55 07/28/23 14:59 Laboratory Results - last 24 hr 07/27/23 15:12: Total Counted 100, Neutrophils % (Manual) 86 H, Lymphocytes % (Manual) 6 L, Monocytes % (Manual) 8, Platelet Estimate Normal, RBC Morphology Normal, Procalcitonin 0.061 07/27/23 15:20: Lactate 0.7 07/27/23 15:26: Lipase 32 07/27/23 15:43: Urine Color Yellow, Urine Appearance Clear, Urine pH 6.0, Ur Specific [place] 1.025, Urine Protein Negative, Urine Glucose (UA) Negative, Urine Ketones Negative, Urine Blood 1+, Urine Nitrate Negative, Urine Bilirubin Negative, Urine Urobilinogen 0.2, Ur Leukocyte Esterase Negative, Urine RBC None, Urine WBC 3-5, Ur Squamous Epith Cells 3-5, Urine Bacteria Trace 07/28/23 05:32: WBC 12.0 H D, RBC 3.36 L, Hgb 10.7 L D, Hct 33.3 L, MCV 99.1 H, MCH 31.8 H, MCHC 32.0, RDW 13.5, Plt Count 411, MPV 8.7, Neut % (Auto) 82.3 H, Lymph % (Auto) 10.4, [place] % (Auto) 7.1, Eos % (Auto) 0.0 L, Baso % (Auto) 0.2, Neut # (Auto) 9.8 H, Lymph # (Auto) 1.2, [place] # (Auto) 0.9, Eos # (Auto) 0.0, Baso # (Auto) 0.0, Sodium 136, Potassium 3.7, Chloride 108 H, Carbon Dioxide 22, Anion Gap 9.7, BUN 12 D, Creatinine 0.70, Estimated Creat Clear 146, Estimated GFR 94, Est GFR ( Amer) 114, Glucose 155 H D, Calcium 9.0 I & O for Last 24 hours: Intake & Output 07/25/23 07/26/23 07/27/23 07/28/23 23:59 23:59 23:59 23:59 Intake Total 1365 / 1365 Output Total 0 / 0 0 / 0 Balance 0 / 200 1365 / 1365 Weight 82.55 kg 83.915 kg Microbiology Reports for the Last 24 Hours: Microbiology 07/27/23 15:20 Blood Blood Culture - Preliminary NO GROWTH AFTER 24 HOURS 07/27/23 15:26 Blood Blood Culture - Preliminary NO GROWTH AFTER 24 HOURS 07/27/23 15:19 Urine,Clean Catch Urine Culture - Preliminary Constitutional Constitutional: no acute distress *Routine HEENT Exam Head: Present normocephalic Eye: Present EOMI and PERRL ENT: Present mucous membranes moist *Routine Neck Exam Neck: Present supple; Absent lymphadenopathy *Routine Respiratory Exam Respiratory: Present CTA bilaterally *Routine Cardiovascular Exam Cardiovascular: Present RRR *Routine Abdominal Exam Abdominal: Present soft and normoactive bowel sounds; Absent tenderness *Routine Extremities Exam Extremities: Absent cyanosis, clubbing or edema *Routine Skin Exam Skin: Present warm; Absent rash *Routine Neurological Exam Neurological: Present alert and oriented X3 Assessment and Plan *Assessment and plan (1) Pyelonephritis: Status: Acute Category: Medical Code(s): N12 - Tubulo-interstitial nephritis, not specified as acute or chronic (2) Sepsis without septic shock: Status: Acute Category: Medical Code(s): A41.9 - Sepsis, unspecified organism Plan # Sepsis without septic shock #Pyelonephritis #Vaginal discharge Meets criteria for leukocytosis, tachycardia and positive infection of pyelonephritis Lactic acid negative Blood cultures obtained Will send for urine culture Continue cefepime, will broaden with doxycycline as well for possible PID coverage SPRAY WORKER consulted, appreciate recommendations Continue maintenance IV fluids Antiemetics and pain medications. DVT PPx Lovenox Full code continue IV abx, await urine culture and blood cultures
[2023-07-28 16:00] VITALS: BP 123/61; PULSE 75; RESP 18; TEMP 36.7; O2SAT 99
[2023-07-28] MEDS: LACTATED RINGERS 1000ML 1,000 ML 50 ML IV (16:58)
--- NOTE | 2023-07-28 17:28 | PC.NURSE ---
A&Ox4, Lungs sounds clear bilaterally, 2+ pulses throughout. Pt c/o lower back pain once this shift, but was resolved with pain medication. Pt ambulating independently around room. Family at bedside. No needs at this time.
[2023-07-28 20:00] VITALS: BP 114/67; PULSE 89; RESP 16; TEMP 36.8; O2SAT 100
--- NOTE | 2023-07-28 20:41 | PC.NURSE ---
Pt refused Wellbutrin at 2100 (scheduled time) due to wanting to take it in the morning.
--- NOTE | 2023-07-28 21:51 | PC.NURSE ---
Notified EQ FAMILY INTERVENTION SPECIALIST [id number] of medication frequency issues. EQ FAMILY INTERVENTION SPECIALIST advised that it was not an emergency and that the primary doctor can adjust that. Notified pt, pt verbalized understanding.
[2023-07-29] VITALS: BP 100/58; PULSE 85; RESP 18; TEMP 36.8; O2SAT 100
[2023-07-29] MEDS: CEFEPIME HCL 2 GM in 0.9 % SODIUM CHLORIDE 100 ML IV ×2 (01:23→08:57)
[2023-07-29 04:00] VITALS: BP 96/52; PULSE 74; RESP 16; TEMP 36.9; O2SAT 99; BMI 28.9
--- NOTE | 2023-07-29 04:47 | PC.NURSE ---
Pt is alert and oriented x4 and currently tolerating RA well. Pt has c/o pain in lower back and was treated per MAR. Pt denies other needs and has had no other acute changes this shift
[2023-07-29 07:38] LABS: Chloride 112 mmol/L (98-107); Potassium 4.1 mmoL/L (3.5-5.1); Sodium 140 mmol/L (136-145)
[2023-07-29 07:40] LABS: Blood Urea Nitrogen 18 mg/dl (7-17); Creatinine Clearance Estimated 127 mL/min (50-200); Estimated Glomerular Filt Rate 81 ml/min (>60); GFR (African American) 98 ML/MIN (>60)
[2023-07-29 07:41] LABS: Anion Gap 8.1 mEq/L (5-15); Basophils # 0.1 K/mm3 (0-0.2); Basophils % 1.4 % (0.1-2.0); Calcium 8.5 mg/dl (8.4-10.2); Carbon Dioxide 24 mmol/L (22.0-30.0); Eosinophils # 0.1 K/mm3 (0.0-0.4); Glucose 92 mg/dl (74-100); Hematocrit 33.9 % (37.0-47.0); Hemoglobin 10.9 g/dL (12.2-16.2); Lymphocytes # 2.5 K/mm3 (0.7-4.5); Lymphocytes % 28.9 % (10-50); Mean Corpuscular HGB Conc 32.1 g/dL (31.8-35.4); Mean Corpuscular Volume 99.7 fl (81-99); Mean Platelet Volume 7.8 fl (7.4-10.4); Monocytes # 0.5 K/mm3 (0.1-1.0); Monocytes % 6.1 % (1.7-9.3); Neutrophils # 5.4 K/mm3 (1.8-7.8); Neutrophils % 62.6 % (37.0-80.0); Platelet Count 437 K/mm3 (142-424); Red Cell Distribution Width 13.9 % (11.5-17.5); White Blood Count 8.6 K/mm3 (4.8-10.8)
[2023-07-29 07:49] VITALS: BP 124/57; PULSE 94; RESP 21; O2SAT 100
[2023-07-29] MEDS: KETOROLAC 30MG/ML VIAL 15 MG IV (08:14)
[2023-07-29] MEDS: DOXYCYCLINE HYCL 100 MG TABLET PO (08:16)
[2023-07-29] MEDS: BUSPIRONE HCL 10 MG TABLET 15 MG PO (08:16)
[2023-07-29] MEDS: ENOXAPARIN 40MG/0.4ML SYRINGE 40 MG SQ (08:18)
[2023-07-29] MEDS: buPROPion HCl SR 150MG TAB 300 MG PO (08:18)
[2023-07-29] MEDS: LACTATED RINGERS 1000ML 1,000 ML 50 ML IV (09:02)
--- NOTE | 2023-07-29 10:49 | EXP.ACUTE.PN ---
Subjective *Date: 07/29/23 *Time: 10:49 Interval history: Feeling better this morning. Still has dysuria and flank pain but it is better than yesterday. Denies fever/chills, chest pain and shortness of breath. Ambulating well ad mars. Tolerating regular diet. Medical Exam Vital signs and Labs for Last 24 Hours: Vital Signs Temp Pulse Resp BP Pulse Ox O2 Del Method 07/29/23 09:00 Room Air 07/29/23 08:00 Room Air 07/29/23 07:49 94 H 21 124/57 L 100 Room Air 07/29/23 06:35 Room Air 07/29/23 04:43 Room Air 07/29/23 04:00 98.4 F 74 16 96/52 L 99 Room Air 07/29/23 03:00 Room Air 07/29/23 01:00 Room Air 07/29/23 00:00 98.2 F 85 18 100/58 L 100 Room Air 07/28/23 23:00 Room Air 07/28/23 20:47 Room Air 07/28/23 20:00 98.2 F 89 16 114/67 100 Room Air 07/28/23 20:00 Room Air 07/28/23 18:43 Room Air 07/28/23 17:00 Room Air 07/28/23 16:00 98.1 F 75 18 123/61 99 Room Air 07/28/23 14:59 Room Air 07/28/23 13:00 Room Air 07/28/23 11:55 98.3 F 79 16 131/83 96 Room Air 07/28/23 10:56 Room Air Intake and Output 07/28/23 07/29/23 07/29/23 23:59 07:59 15:59 Intake Total 687 / 2052 1034 / 1034 Output Total 0 / 0 0 / 0 Balance 687 / 2052 1034 / 1034 Intake: Intake, Oral Amount 240 / 840 360 / 360 Intake, Total IV Amount 447 / 1212 674 / 674 Cefepime HCl 2 gm In 0.9 % 100 / 400 100 / 100 Sodium Chloride 100 ml @ 200 mls/hr IV Q8H RAMAKRISHNA Rx#:[id number] Lactated Ringers 1000ML 1,000 347 / 812 574 / 574 ml @ 50 mls/hr IV .Q20H RAMAKRISHNA Rx# :[id number] Output: Output, Urine Amount 0 / 0 0 / 0 Other: Number of Voids 0 Number of Unmeasured Voids 1 1 Weight 184 lb 3 oz Patient Weight 07/29/23 23:59 Weight 184 lb 3 oz Laboratory Results - last 24 hr 07/28/23 05:32: Hgb 10.7 L D 07/29/23 07:10: WBC 8.6 D, RBC 3.40 L, Hgb 10.9 L, Hct 33.9 L, MCV 99.7 H, MCH 32.0 H, MCHC 32.1, RDW 13.9, Plt Count 437 H, MPV 7.8, Neut % (Auto) 62.6, Lymph % (Auto) 28.9, [place] % (Auto) 6.1, Eos % (Auto) 1.0, Baso % (Auto) 1.4, Neut # (Auto) 5.4, Lymph # (Auto) 2.5, [place] # (Auto) 0.5, Eos # (Auto) 0.1, Baso # (Auto) 0.1, Sodium 140, Potassium 4.1, Chloride 112 H, Carbon Dioxide 24, Anion Gap 8.1, BUN 18 H D, Creatinine 0.80, Estimated Creat Clear 127, Estimated GFR 81, Est GFR ( Amer) 98, Glucose 92, Calcium 8.5 I & O for Labs for Last 24 Hours: Intake & Output 07/26/23 07/27/23 07/28/23 07/29/23 23:59 23:59 23:59 23:59 Intake Total 2051 1034 / 1034 Output Total 0 / 0 0 / 0 0 / 0 Balance 0 / 200 2051 1034 / 1034 Weight 181 lb 15.865 oz 185 lb 184 lb 3 oz Microbiology Reports for the Last 24 Hours: Microbiology 07/27/23 15:19 Urine,Clean Catch Urine Culture - Preliminary Gram Negative Rods 07/27/23 18:10 Blood Blood Culture - Preliminary NO GROWTH AFTER 24 HOURS 07/27/23 18:02 Blood Blood Culture - Preliminary NO GROWTH AFTER 24 HOURS 07/27/23 15:20 Blood Blood Culture - Preliminary NO GROWTH AFTER 24 HOURS 07/27/23 15:26 Blood Blood Culture - Preliminary NO GROWTH AFTER 24 HOURS Head: Present atraumatic and normocephalic ENT: Present mucous membranes moist Neck: Present full ROM Respiratory: Present CTA bilaterally and normal respiratory effort Cardiac: Present Reg Rate and Rhythm GI: Present soft, tenderness (+ suprapubic/bladder tenderness to palpation) and normal bowel sounds; Absent distention or guarding Comments:: + bilateral CVA tenderness Rectal (female): Present deferred (female): Present deferred Extremities: Present full ROM; Absent edema or calf tenderness Assessment and Plan *Assessment and plan (1) Sepsis without septic shock: Status: Acute Category: Medical Code(s): A41.9 - Sepsis, unspecified organism (2) Pyelonephritis: Status: Acute Category: Medical Code(s): N12 - Tubulo-interstitial nephritis, not specified as acute or chronic (3) Lower abdominal pain: Status: Acute Category: Medical Code(s): R10.30 - Lower abdominal pain, unspecified (4) Recurrent urinary tract infection: Status: Acute Category: Medical Code(s): N39.0 - Urinary tract infection, site not specified (5) Vaginal discharge: Status: Acute Category: Medical Code(s): N89.8 - Other specified noninflammatory disorders of vagina Plan Vaginal ID PCR swab pending. Results should be back on Monday, 07/30. If patient is discharged, will call her with results. [facility]CP and [facility] Follow-up with me in the office outpatient Will sign off at this time. Please don't hesitate to contact me if anything changes
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
--- NOTE | 2023-08-02 15:12 | CARE MANAGER ---
Attempted to contact patient related to hospital discharge. VM box was full. JEN Monroy
== END 2023-07-29 13:53 | disposition home or self-care (01) | DRG 872 ==
LOC: ER 16:59 → 2ND 17:54
PROVIDERS: Physician Assistant; Admitting Provider Internal Medicine; Emergency Provider Emergency Medicine; PCP Physician Assistant; Visit Provider Internal Medicine
DX: A41.9 Sepsis, unspecified organism (principal); N12 Tubulo-interstitial nephritis, not specified as acute or chronic; F17.210 Nicotine dependence, cigarettes, uncomplicated; F41.9 Anxiety disorder, unspecified; N89.8 Other specified noninflammatory disorders of vagina
CPT/HCPCS: 36415; 71045; 74177; 80048; 80053; 81001; 83605; 83690; 83735; 84145; 84703; 85007; 85025; 85027; 87040; 87086; 87088; 87186; 99285; G0378; J0131; J0696; J1650; J1885; J7120; Q9967

== ENCOUNTER 2023-07-27 18:00 | Outpatient (CLI) | payer OTHER, SELFPAY | END 2023-07-27 23:59 | disposition home or self-care (01) | LOC: LAB.DROPOF 07-28 15:18 | PROVIDERS: PCP Physician Assistant; Visit Provider Physician Assistant | DX: Z02.9 Encounter for administrative examinations, unspecified (principal) ==

== ENCOUNTER 2023-07-29 21:41 | Emergency (ER) | payer OTHER, SELFPAY ==
[2023-07-29] VITALS (7 sets, daily range): BP systolic 100–136; BP diastolic 70–84; PULSE 79–109; RESP 16–20; TEMP 36.9–37; O2SAT 99–100; BMI 28.5
--- NOTE | 2023-07-29 22:31 | [facility].EDGENADL ---
Discharge Plan Disposition Patient Disposition: Home, Self-Care Prescriptions Prescriptions: New cefdinir 300 mg capsule 300 mg PO BID 10 Days Qty: 20 0RF No Action buspirone 15 mg tablet 15 mg PO TID Patient Comments: TAKE 1 TABLET BY MOUTH THREE TIMES A DAY bupropion HCl 300 mg tablet extended release 24 hr 300 mg PO DAILY Patient Comments: TAKE 1 TABLET BY MOUTH EVERY DAY levonorgestrel-ethinyl estrad [Aviane] 0.1-20 mg-mcg tablet 1 tab PO DAILY Qty: 28 3RF sulfamethoxazole-trimethoprim 800-160 mg tablet 1 tab PO BID Patient Comments: TAKE 1 TABLET BY MOUTH TWICE A DAY estradiol [Estrace] 0.01 % (0.1 mg/gram) cream 1 appful vaginal DAILY Qty: 42.5 0RF Rx Instructions: Apply blueberry size amount nightly at bedtime for 14 days followed by twice weekly for maintenance amoxicillin-pot clavulanate 875-125 mg tablet 1 tab PO Q12H 7 Days Qty: 14 0RF phenazopyridine [Pyridium] 100 mg tablet 100 mg PO TID PRN (Reason: pain) 5 Days Qty: 15 0RF fluconazole 150 mg tablet 150 mg PO Q3D Qty: 3 0RF Referrals Follow up/Referrals: Ana Berumen PA [Primary Care Provider] - See instructions Activity Restrictions/Add. Instructions Additional Instructions/Restrictions: You were evaluated in the ER. You are appropriate for discharge at this time. Stop taking the amoxicillin?clavulanate. Start taking the newly prescribed cefdinir. Do not skip doses, do not stop taking it early. Continue taking other home medications as previously prescribed. Drink plenty of fluids. Follow-up with your primary care physician for reevaluation in 3 days. Return to the ER with new, worsening, or otherwise concerning symptoms. Clinical Impressions Clinical Impression: Pyelonephritis Discharge ED Provider: Yenny Mancilla General Adult HPI <Yenny Mancilla MD - Last Filed: 07/29/23 22:35> General Chief complaint: Back Pain/Injury Stated complaint: upper back pain,SOA,weak,nausea Time Seen by Provider: 07/29/23 22:05 Mode of Arrival: Ambulatory Source of Information: Patient Limitations: No Limitations Description of Symptoms (Recalled from ER Triage Doc. by RN): Patient states that she was just discharged today after admission for sepsis and kidney infection. Patient states that she began experiencing diffuse upper and lower back pain, chills, and myalgias. Patient has not taken tylenol or motrin at home at this time. Patient was discharged today on amoxicilling, pyridium, and took diflucan. Patient also reports shortness of breath. History of Present Illness HPI narrative: Patient is a 38-year-old female present today with multiple complaints. She states about a month and a half ago she started experiencing urinary tract infection symptoms she went to urgent treatment clinic was started on nitrofurantoin without any significant improvement she subsequently went back to where she was prescribed Bactrim again without any significant improvement. She return to the emergency department on 3 with evidence of sepsis she was tachycardic had a leukocytosis had a fever had inflammatory changes and stranding on the CT scan demonstrating right-sided pyelonephritis. There was some concern at the time for pelvic inflammatory disease but the patient states she has had chronic vaginal discharge which is unchanged from the past not consistent with pelvic inflammatory disease and she was started on Zosyn as well as doxycycline and Flagyl. She was transitioned to cefepime in the hospital and still got some doxycycline. She states that she felt significantly better urine culture grew gram-negative rods has not been speciated do not have susceptibilities yet. She was transitioned to amoxicillin/clavulanate acid for unclear reasons and discharged on this. She states she has started feeling a lot worse since going home today including worsening flank pain overall just feeling fatigued and malaise. No fever this time she states she feels much better than he did last time upon being hospitalized. Related Data Home Medications Medication Instructions Recorded Confirmed bupropion HCl 300 mg 24 hr tablet, 300 mg PO DAILY 07/27/23 07/27/23 extended release buspirone 15 mg tablet 15 mg PO TID 07/27/23 07/28/23 sulfamethoxazole 800 1 tab PO BID 07/27/23 07/27/23 mg-trimethoprim 160 mg tablet Previous Rx's Medication Instructions Recorded estradiol 0.01% (0.1 mg/gram) 1 appful vaginal DAILY #42.5 grams 07/28/23 vaginal cream (Estrace) levonorgestrel-ethinyl estradiol 1 tab PO DAILY #28 tabs 07/28/23 0.1 mg-20 mcg tablet (Aviane) amoxicillin 875 mg-potassium 1 tab PO Q12H 7 days #14 tabs 07/29/23 clavulanate 125 mg tablet cefdinir 300 mg capsule 300 mg PO BID 10 days #20 caps 07/29/23 fluconazole 150 mg tablet 150 mg PO Q3D 2 doses #3 tabs 07/29/23 phenazopyridine 100 mg tablet 100 mg PO TID PRN pain 5 days #15 07/29/23 (Pyridium) tabs Allergies Allergy/AdvReac Type Severity Reaction Status Date / Time levofloxacin [From Levaquin] Allergy Verified 07/27/23 15:22 PFS <Yenny Mancilla MD - Last Filed: 07/29/23 22:35> [facility] Disclaimer: The information contained in this section may have been updated after the patient was seen, as this information can be updated by other users. Medical History (Updated 07/29/23 @ 22:30 by Yenny Mancilla MD) Lower abdominal pain Recurrent urinary tract infection Vaginal discharge Urinary tract infection Surgical History Status post open reduction and internal fixation (ORIF) of fracture History of section Family History Other Family history of cancer Social History Smoking Status: Current every day smoker tobacco type: cigarettes packs per day: 1 alcohol intake: current alcohol intake frequency: a few times a month substance use type: denies use current occupational status: employed Travel in the last 8 weeks: Inside the [place] <Yenny Mancilla MD - Last Filed: 07/29/23 22:35> ROS Obtained: Yes All systems reviewed & no additional complaints except as documented Physical Exam <Yenny Mancilla MD - Last Filed: 07/29/23 22:35> General General appearance: alert Respiratory Respiratory exam: Present normal lung sounds bilaterally Cardiovascular Cardiovascular exam: Present regular rate and normal rhythm Abdominal Exam Abdominal exam: Present soft; Absent distention or tenderness Back Exam Back exam: Present CVA tenderness (R) Neurological Exam Neurological exam: Present alert and oriented X3 Medical Decision Making <Yenny Mancilla MD - Last Filed: 07/29/23 22:35> Eren Inquiry Pt receiving controlled substance: No Vital Signs: 07/29/23 21:43 07/29/23 22:15 07/29/23 22:30 Temperature 98.6 F Temperature Source Oral Pulse Rate 109 H 89 Pulse Rate [Right Radial] 95 H Respiratory Rate 18 Blood Pressure 132/79 135/84 Blood Pressure [Left Arm] 136/76 Blood Pressure Mean [Left Arm] 96 Blood Pressure Source [Left Arm] Automatic Cuff Blood Pressure Position [Left Arm] Sitting 02 Sat by Pulse Oximetry 99 100 100 Oxygen Delivery Method Room Air 07/29/23 23:00 07/29/23 23:15 07/29/23 23:32 Temperature Temperature Source Pulse Rate 86 79 83 Pulse Rate [Right Radial] Respiratory Rate 20 18 16 Blood Pressure 126/81 118/70 100/76 L Blood Pressure [Left Arm] Blood Pressure Mean [Left Arm] Blood Pressure Source [Left Arm] Blood Pressure Position [Left Arm] 02 Sat by Pulse Oximetry 99 100 99 Oxygen Delivery Method Room Air Room Air Room Air Lab Data Lab Results 07/29/23 22:41: WBC 8.9, RBC 3.55 L, Hgb 11.3 L, Hct 35.5 L, MCV 99.9 H, MCH 31.8 H, MCHC 31.8, RDW 13.6, Plt Count 490 H, MPV 8.0, Neut % (Auto) 65.2, Lymph % (Auto) 24.6, Larue % (Auto) 6.0, Eos % (Auto) 2.8, Baso % (Auto) 1.5, Neut # (Auto) 5.8, Lymph # (Auto) 2.2, Larue # (Auto) 0.5, Eos # (Auto) 0.2, Baso # (Auto) 0.1, Sodium 137, Potassium 4.1, Chloride 108 H, Carbon Dioxide 24, Anion Gap 9.1, BUN 17, Creatinine 0.70, Estimated Creat Clear 143, Estimated GFR 94, Est GFR ( Amer) 114, Glucose 89, Lactate 0.8, Calcium 8.7, Total Bilirubin 0.5, AST 29, ALT 40, Alkaline Phosphatase 56, Total Protein 6.7, Albumin 3.7, Globulin 3.0, Albumin/Globulin Ratio 1.2 07/29/23 23:30: Urine Color Yellow, Urine Appearance Clear, Urine pH 6.0, Ur Specific [place] 1.020, Urine Protein Negative, Urine Glucose (UA) Negative, Urine Ketones Negative, Urine Blood 2+, Urine Nitrate Positive, Urine Bilirubin Negative, Urine Urobilinogen 0.2, Ur Leukocyte Esterase Negative 07/29/23 22:41 07/29/23 22:41 Orders (Tests/Meds): ED MEDICATIONS Discontinued Medications Generic Name Dose Route Start Last Admin Trade Name Freq PRN Reason Stop Dose Admin Acetaminophen 1,000 mg 07/29/23 22:30 07/29/23 22:47 Acetaminophen 1,000mg/100ml Vial IV 07/29/23 22:31 1,000 mg ONCE ONE Administration Cefdinir 300 mg 07/29/23 22:31 07/29/23 22:47 Cefdinir 300mg Capsule PO 07/29/23 22:32 300 mg ONCE ONE Administration Lactated Ringer's 1,000 mls @ 999 mls/hr 07/29/23 22:30 07/29/23 22:48 Lactated Ringer's 1000 Ml Bag IV 07/29/23 23:30 999 mls/hr .Q1H1M RAMAKRISHNA Administration Ondansetron HCl 4 mg 07/29/23 22:30 07/29/23 22:47 Ondansetron 4mg/2ml Vial IV 07/29/23 22:31 4 mg ONCE ONE Administration ORDERS Category Date Time Status CBC w/Auto Diff [Complete Blood Count Auto Diff] Stat Lab 07/29/23 22:41 Completed CMP [Comprehensive Metabolic Panel] Stat Lab 07/29/23 22:41 Completed Lactic Acid Stat Lab 07/29/23 22:41 Completed UA [Urinalysis and Microscopic] Stat Lab 07/29/23 23:30 Results Medical Decision Narrative: 38-year-old female presenting today with above history and physical. She is afebrile not tachycardic today. She grew gram-negative rods for unclear reason she was discharged on Augmentin which likely will not cover normal enteric species. Will transition her to third-generation cephalosporin first dose of cefdinir will be given in the emergency department. She does have a Levaquin allergy. She felt significantly better in the hospital after getting Zosyn in the ED and cefepime in the hospital. It is possible she has multidrug-resistant organisms that she is suffering from multiple urinary tract infections in the past and has been exposed to many different antibiotics recently. However I do not have susceptibilities. I offered her admission for broad-spectrum antibiotics until her urine culture results specifically susceptibilities returned to go to transition to appropriate oral antibiotics. She declined this at the moment. Will get basic blood work IV fluids Tylenol and reassess. Care will be transitioned to Dr. Humera Lioa at 11 PM. Plan will be to discontinue Augmentin and changed to cefdinir upon being discharged. <Eve Liao MD - Last Filed: 07/29/23 23:46> Vital Signs: 07/29/23 21:43 07/29/23 22:15 07/29/23 22:30 Temperature 98.6 F Temperature Source Oral Pulse Rate 109 H 89 Pulse Rate [Right Radial] 95 H Respiratory Rate 18 Blood Pressure 132/79 135/84 Blood Pressure [Left Arm] 136/76 Blood Pressure Mean [Left Arm] 96 Blood Pressure Source [Left Arm] Automatic Cuff Blood Pressure Position [Left Arm] Sitting 02 Sat by Pulse Oximetry 99 100 100 Oxygen Delivery Method Room Air 07/29/23 23:00 07/29/23 23:15 07/29/23 23:32 Temperature Temperature Source Pulse Rate 86 79 83 Pulse Rate [Right Radial] Respiratory Rate 20 18 16 Blood Pressure 126/81 118/70 100/76 L Blood Pressure [Left Arm] Blood Pressure Mean [Left Arm] Blood Pressure Source [Left Arm] Blood Pressure Position [Left Arm] 02 Sat by Pulse Oximetry 99 100 99 Oxygen Delivery Method Room Air Room Air Room Air Lab Data Lab Results 07/29/23 22:41: WBC 8.9, RBC 3.55 L, Hgb 11.3 L, Hct 35.5 L, MCV 99.9 H, MCH 31.8 H, MCHC 31.8, RDW 13.6, Plt Count 490 H, MPV 8.0, Neut % (Auto) 65.2, Lymph % (Auto) 24.6, Lar[place] % (Auto) 6.0, Eos % (Auto) 2.8, Baso % (Auto) 1.5, Neut # (Auto) 5.8, Lymph # (Auto) 2.2, [place] # (Auto) 0.5, Eos # (Auto) 0.2, Baso # (Auto) 0.1, Sodium 137, Potassium 4.1, Chloride 108 H, Carbon Dioxide 24, Anion Gap 9.1, BUN 17, Creatinine 0.70, Estimated Creat Clear 143, Estimated GFR 94, Est GFR ( Amer) 114, Glucose 89, Lactate 0.8, Calcium 8.7, Total Bilirubin 0.5, AST 29, ALT 40, Alkaline Phosphatase 56, Total Protein 6.7, Albumin 3.7, Globulin 3.0, Albumin/Globulin Ratio 1.2 07/29/23 23:30: Urine Color Yellow, Urine Appearance Clear, Urine pH 6.0, Ur Specific [place] 1.020, Urine Protein Negative, Urine Glucose (UA) Negative, Urine Ketones Negative, Urine Blood 2+, Urine Nitrate Positive, Urine Bilirubin Negative, Urine Urobilinogen 0.2, Ur Leukocyte Esterase Negative Orders (Tests/Meds): ED MEDICATIONS Discontinued Medications Generic Name Dose Route Start Last Admin Trade Name Freq PRN Reason Stop Dose Admin Acetaminophen 1,000 mg 07/29/23 22:30 07/29/23 22:47 Acetaminophen 1,000mg/100ml Vial IV 07/29/23 22:31 1,000 mg ONCE ONE Administration Cefdinir 300 mg 07/29/23 22:31 07/29/23 22:47 Cefdinir 300mg Capsule PO 07/29/23 22:32 300 mg ONCE ONE Administration Lactated Ringer's 1,000 mls @ 999 mls/hr 07/29/23 22:30 07/29/23 22:48 Lactated Ringer's 1000 Ml Bag IV 07/29/23 23:30 999 mls/hr .Q1H1M RAMAKRISHNA Administration Ondansetron HCl 4 mg 07/29/23 22:30 07/29/23 22:47 Ondansetron 4mg/2ml Vial IV 07/29/23 22:31 4 mg ONCE ONE Administration ORDERS Category Date Time Status CBC w/Auto Diff [Complete Blood Count Auto Diff] Stat Lab 07/29/23 22:41 Completed CMP [Comprehensive Metabolic Panel] Stat Lab 07/29/23 22:41 Completed Lactic Acid Stat Lab 07/29/23 22:41 Completed UA [Urinalysis and Microscopic] Stat Lab 07/29/23 23:30 Results Medical Decision Narrative: 38-year-old female presenting today with above history and physical. She is afebrile not tachycardic today. She grew gram-negative rods for unclear reason she was discharged on Augmentin which likely will not cover normal enteric species. Will transition her to third-generation cephalosporin first dose of cefdinir will be given in the emergency department. She does have a Levaquin allergy. She felt significantly better in the hospital after getting Zosyn in the ED and cefepime in the hospital. It is possible she has multidrug-resistant organisms that she is suffering from multiple urinary tract infections in the past and has been exposed to many different antibiotics recently. However I do not have susceptibilities. I offered her admission for broad-spectrum antibiotics until her urine culture results specifically susceptibilities returned to go to transition to appropriate oral antibiotics. She declined this at the moment. Will get basic blood work IV fluids Tylenol and reassess. Care will be transitioned to Dr. Eve Liao at 11 PM. Plan will be to discontinue Augmentin and changed to cefdinir upon being discharged. Liao: Upon my assumption of care patient is stable and resting comfortably. She does not require any imaging. I agree with the assessment and plan from Dr. Mancilla above. Labs demonstrate no leukocytosis, hemoglobin stable from prior, no findings of kidney dysfunction or liver dysfunction, UA positive for nitrites consistent with patient being on phenazopyridine, otherwise negative for findings of infection. On reassessment she continues to be stable and is appropriate for discharge at this time. She was instructed to stop the Augmentin and started on cefdinir which has been prescribed. Patient was given instructions on symptomatic management, follow up instructions, and return precautions for the emergency department. Patient indicated understanding and was discharged in stable condition. Critical Care <Yenny Mancilla MD - Last Filed: 07/29/23 22:35> Critical Care Time Critical Care Time: No
[2023-07-29] MEDS: ACETAMINOPHEN 1,000MG/100ML VIAL 1000 MG IV (22:47)
[2023-07-29] MEDS: ONDANSETRON 4MG/2ML VIAL 4 MG IV (22:47)
[2023-07-29] MEDS: CEFDINIR 300MG CAPSULE 300 MG PO (22:47)
[2023-07-29] MEDS: LACTATED RINGERS 1000ML 1,000 ML 999 ML IV (22:48)
[2023-07-29 22:49] LABS: Basophils # 0.1 K/mm3 (0-0.2); Basophils % 1.5 % (0.1-2.0); Eosinophils # 0.2 K/mm3 (0.0-0.4); Eosinophils % 2.8 % (0.1-12.0); Hematocrit 35.5 % (37.0-47.0); Hemoglobin 11.3 g/dL (12.2-16.2); Lymphocytes # 2.2 K/mm3 (0.7-4.5); Lymphocytes % 24.6 % (10-50); Mean Corpuscular HGB Conc 31.8 g/dL (31.8-35.4); Mean Corpuscular Hemoglobin 31.8 pg (27.0-31.2); Mean Corpuscular Volume 99.9 fl (81-99); Monocytes # 0.5 K/mm3 (0.1-1.0); Neutrophils # 5.8 K/mm3 (1.8-7.8); Neutrophils % 65.2 % (37.0-80.0); Platelet Count 490 K/mm3 (142-424); Red Blood Count 3.55 M/mm3 (4.20-5.40); Red Cell Distribution Width 13.6 % (11.5-17.5); White Blood Count 8.9 K/mm3 (4.8-10.8)
[2023-07-29 22:53] LABS: Chloride 108 mmol/L (98-107); Potassium 4.1 mmoL/L (3.5-5.1); Sodium 137 mmol/L (136-145)
[2023-07-29 22:55] LABS: Alanine Aminotransferase 40 U/L (12-78); Alkaline Phosphatase 56 U/L (38-126); Aspartate Amino Transferase 29 U/L (14-36); Bilirubin,Total 0.5 mg/dl (0.2-1.3); Blood Urea Nitrogen 17 mg/dl (7-17); Creatinine Clearance Estimated 143 mL/min (50-200); Estimated Glomerular Filt Rate 94 ml/min (>60); GFR (African American) 114 ML/MIN (>60)
[2023-07-29 22:56] LABS: Albumin Level 3.7 g/dl (3.5-5.0); Albumin/Globulin Ratio 1.2 (1.1-1.8); Anion Gap 9.1 mEq/L (5-15); Calcium 8.7 mg/dl (8.4-10.2); Carbon Dioxide 24 mmol/L (22.0-30.0); Glucose 89 mg/dl (74-100); Total Protein,Serum 6.7 g/dl (6.3-8.2)
[2023-07-29 22:57] LABS: Lactic Acid 0.8 mmol/L (0.7-2.1)
[2023-07-29 23:37] LABS: Microscopic, Urine URINE MICROSCOPIC (MICROSCOPIC)
[2023-07-29 23:38] LABS: Appearance,Urine CLEAR (Clear); Bilirubin,Urine Negative (Negative); Blood, Urine 2+ (Negative); Color,Urine YELLOW (Yellow); Glucose,Urine (UA) Negative (Negative); Ketones,Urine Negative (Negative); Leukocyte Esterase,Urine Negative (Negative); Nitrate,Urine POSITIVE (Negative); Protein,Urine Negative (Negative); Urobilinogen,Urine 0.2 EU/dl (0.2)
[2023-07-30 00:02] LABS: Bacteria,Urine Trace /lpf; Squamous Epithelial Cell,Urine Occasional #/hpf (0-5)
== END 2023-07-30 | disposition home or self-care (01) ==
PROVIDERS: Emergency Provider Student in an Organized Health Care Education/Training Program; PCP Physician Assistant
DX: N10 Acute pyelonephritis (principal); R10.30 Lower abdominal pain, unspecified; M54.59 Other low back pain; R53.81 Other malaise; F17.210 Nicotine dependence, cigarettes, uncomplicated
CPT/HCPCS: 80053; 81001; 83605; 85025; 96361; 96374; 96375; 99284; J0131; J2405; J7120

== ENCOUNTER 2023-07-31 20:01 | Emergency (ER) | payer OTHER, SELFPAY ==
[2023-07-31 20:02] VITALS: BP 144/84; PULSE 102; RESP 18; TEMP 37.2; O2SAT 100; BMI 28.5
--- NOTE | 2023-07-31 20:07 | HMH.EDGENADL ---
Discharge Plan Disposition Patient Disposition: Home, Self-Care Condition: Good Prescriptions Prescriptions: New ondansetron 4 mg tablet,disintegrating 4 mg PO Q6H PRN (Reason: nausea and vomiting) Qty: 10 0RF No Action buspirone 15 mg tablet 15 mg PO TID Patient Comments: TAKE 1 TABLET BY MOUTH THREE TIMES A DAY bupropion HCl 300 mg tablet extended release 24 hr 300 mg PO DAILY Patient Comments: TAKE 1 TABLET BY MOUTH EVERY DAY levonorgestrel-ethinyl estrad [Aviane] 0.1-20 mg-mcg tablet 1 tab PO DAILY Qty: 28 3RF cefdinir 300 mg capsule 300 mg PO BID 10 Days Qty: 20 0RF sulfamethoxazole-trimethoprim 800-160 mg tablet 1 tab PO BID Patient Comments: TAKE 1 TABLET BY MOUTH TWICE A DAY estradiol [Estrace] 0.01 % (0.1 mg/gram) cream 1 appful vaginal DAILY Qty: 42.5 0RF Rx Instructions: Apply blueberry size amount nightly at bedtime for 14 days followed by twice weekly for maintenance amoxicillin-pot clavulanate 875-125 mg tablet 1 tab PO Q12H 7 Days Qty: 14 0RF phenazopyridine [Pyridium] 100 mg tablet 100 mg PO TID PRN (Reason: pain) 5 Days Qty: 15 0RF fluconazole 150 mg tablet 150 mg PO Q3D Qty: 3 0RF Referrals Follow up/Referrals: Ana Berumen PA [Primary Care Provider] - See instructions Activity Restrictions/Add. Instructions Additional Instructions/Restrictions: Please take Tylenol alternating every 4 hours with Motrin while you are awake for fever and symptoms such as back pain. Take Zofran at the first sign of nausea. Return to the emergency department for intractable nausea vomiting inability to tolerate oral intake high fevers as needed Clinical Impressions Clinical Impression: Pyelonephritis Instructions Patient Instructions: DI for Kidney Infection Discharge ED Provider: Sunil Lynch General Adult HPI <TRI Ornelas - Last Filed: 07/31/23 22:10> General Chief complaint: Urogenital-Female Stated complaint: Vomiting,upper back pain,weakness Time Seen by Provider: 07/31/23 20:07 History of Present Illness HPI narrative: Patient presents for evaluation of nausea dysuria and back pain. Patient was recently diagnosed with pyelonephritis and actually admitted to the hospital and discharged on Monday. However she was discharged on amoxicillin for which the by gram shows that the drug is resistant. She presented to the ER for constitutional symptoms of nausea and vomiting and fever on Monday evening. She was treated with IV fluid and her prescription was changed to Omnicef. Patient felt better for about 24 hours but again is started having fever nausea vomiting and back pain. On arrival patient slightly tachycardic temperature of 99.7 and reports inability to tolerate oral intake. She denies chest pain chills hemoptysis hematochezia melena diarrhea. Related Data Home Medications Medication Instructions Recorded Confirmed bupropion HCl 300 mg 24 hr tablet, 300 mg PO DAILY 07/27/23 07/27/23 extended release buspirone 15 mg tablet 15 mg PO TID 07/27/23 07/28/23 sulfamethoxazole 800 1 tab PO BID 07/27/23 07/27/23 mg-trimethoprim 160 mg tablet Previous Rx's Medication Instructions Recorded estradiol 0.01% (0.1 mg/gram) 1 appful vaginal DAILY #42.5 grams 07/28/23 vaginal cream (Estrace) levonorgestrel-ethinyl estradiol 1 tab PO DAILY #28 tabs 07/28/23 0.1 mg-20 mcg tablet (Aviane) amoxicillin 875 mg-potassium 1 tab PO Q12H 7 days #14 tabs 07/29/23 clavulanate 125 mg tablet cefdinir 300 mg capsule 300 mg PO BID 10 days #20 caps 07/29/23 fluconazole 150 mg tablet 150 mg PO Q3D 2 doses #3 tabs 07/29/23 phenazopyridine 100 mg tablet 100 mg PO TID PRN pain 5 days #15 07/29/23 (Pyridium) tabs ondansetron 4 mg disintegrating 4 mg PO Q6H PRN nausea and 07/31/23 tablet vomiting #10 tabs Allergies Allergy/AdvReac Type Severity Reaction Status Date / Time levofloxacin [From Levaquin] Allergy Verified 07/27/23 15:22 [facility] <TRI Ornelas - Last Filed: 07/31/23 22:10> [facility] Disclaimer: The information contained in this section may have been updated after the patient was seen, as this information can be updated by other users. Medical History (Updated 07/31/23 @ 22:04 by TRI Ornelas) Lower abdominal pain Recurrent urinary tract infection Vaginal discharge Urinary tract infection Surgical History Status post open reduction and internal fixation (ORIF) of fracture History of section Family History Other Family history of cancer Social History Smoking Status: Never smoker alcohol intake: current alcohol intake frequency: a few times a month substance use type: denies use current occupational status: employed Travel in the last 8 weeks: Inside the [place] <TRI Ornelas - Last Filed: 07/31/23 22:10> ROS Obtained: Yes Systems reviewed as appropriate & no additional complaints except as documented Physical Exam <TRI Ornelas - Last Filed: 07/31/23 22:10> General General appearance: alert and in no apparent distress Respiratory Respiratory exam: Present normal lung sounds bilaterally Cardiovascular Cardiovascular exam: Present regular rate and normal rhythm Abdominal Exam Abdominal exam: Present soft and normal bowel sounds; Absent tenderness Extremities Exam Extremities exam: Present normal inspection and full ROM Back Exam Back exam: Present normal inspection; Absent CVA tenderness (R) Neurological Exam Neurological exam: Present alert and oriented X3 Medical Decision Making <TRI Ornelas - Last Filed: 07/31/23 22:10> Medical Records Medical records reviewed: Yes I reviewed the patient's medical records. Eren Inquiry Pt receiving controlled substance: No Vital Signs: 07/31/23 20:02 07/31/23 22:23 Temperature 98.9 F 98.2 F Temperature Source Oral Oral Pulse Rate 87 Pulse Rate [Left Radial] 102 H Respiratory Rate 18 18 Blood Pressure 108/62 L Blood Pressure [Right Arm] 144/84 H Blood Pressure Mean [Right Arm] 104 Blood Pressure Source Automatic Cuff Blood Pressure Source [Right Arm] Automatic Cuff Blood Pressure Position Sitting Blood Pressure Position [Right Arm] Sitting 02 Sat by Pulse Oximetry 100 Oxygen Delivery Method Room Air Room Air Lab Data Lab results reviewed: Yes I reviewed the patient's lab results. Lab Results 07/31/23 20:45: WBC 6.4 D, RBC 3.42 L, Hgb 11.2 L, Hct 34.0 L, MCV 99.4 H, MCH 32.8 H, MCHC 33.0, RDW 13.5, Plt Count 579 H, MPV 8.1, Neut % (Auto) 56.1, Lymph % (Auto) 29.7, [place] % (Auto) 6.9, Eos % (Auto) 5.8, Baso % (Auto) 1.5, Neut # (Auto) 3.6, Lymph # (Auto) 1.9, [place] # (Auto) 0.4, Eos # (Auto) 0.4, Baso # (Auto) 0.1, Sodium 140, Potassium 3.8, Chloride 106, Carbon Dioxide 23, Anion Gap 14.8, BUN 14, Creatinine 0.70, Estimated Creat Clear 143, Estimated GFR 94, Est GFR ( Amer) 114, Glucose 96, Lactate 1.7, Calcium 8.7, Magnesium 2.2, Total Bilirubin 0.4, AST 73 H D, ALT 70 D, Alkaline Phosphatase 51, Total Protein 7.1, Albumin 3.9, Globulin 3.2, Albumin/Globulin Ratio 1.2, Lipase 36, Procalcitonin < 0.030 07/31/23 20:45 07/31/23 20:45 Orders (Tests/Meds): ED MEDICATIONS Discontinued Medications Generic Name Dose Route Start Last Admin Trade Name Samq PRN Reason Stop Dose Admin Acetaminophen 1,000 mg 07/31/23 20:26 07/31/23 20:56 Acetaminophen 1,000mg/100ml Vial IV 07/31/23 20:27 1,000 mg ONCE ONE Administration Lactated Ringer's 1,000 mls @ 999 mls/hr 07/31/23 20:26 07/31/23 20:56 Lactated Ringer's 1000 Ml Bag IV 07/31/23 21:26 999 mls/hr .Q1H1M ONE Administration Ketorolac Tromethamine 30 mg 07/31/23 20:26 07/31/23 20:56 Ketorolac 30mg/Ml Vial IV 07/31/23 20:27 30 mg ONCE ONE Administration Prochlorperazine Edisylate 10 mg 07/31/23 20:26 07/31/23 20:56 Prochlorperazine 10mg/2ml Vial IV 07/31/23 20:27 10 mg ONCE ONE Administration ORDERS Category Date Time Status CBC w/Auto Diff [Complete Blood Count Auto Diff] Stat Lab 07/31/23 20:45 Completed CMP [Comprehensive Metabolic Panel] Stat Lab 07/31/23 20:45 Completed Lactic Acid Stat Lab 07/31/23 20:45 Completed Lipase Stat Lab 07/31/23 20:45 Completed Magnesium Stat Lab 07/31/23 20:45 Completed Procalcitonin Stat Lab 07/31/23 20:45 Completed Medical Decision Narrative: In summary patient is a 88-year-old female who presents to the emergency department for evaluation of nausea vomiting dysuria back pain. Patient is normotensive but tachycardic at a heart rate 100 to satting at 100% on room air breathing 18 times a minute upon arrival, temperature of 99.7. Physical exam is remarkable for slight bilateral CVA tenderness to percussion. Differential diagnosis includes pyelonephritis versus failure of outpatient treatment versus nausea vomiting versus antibiotic reaction etc. Initial workup will be conducted with hematologic labs. Initial interventions include fluid bolus antiemetics Tylenol Toradol. Initial workup reviewed by me shows that her hematologic labs are nonactionable with a good creatinine and her white count is continuing to remain normal with no shift. Upon repeat evaluation patient has had improvement in her constitutional symptoms as not tachycardic is afebrile tolerating p.o. Given this I had interactive discussion with the patient regarding her initial diagnosis and projected course given that this is an organ infection not just a simple urinary tract infection. Patient given instructions to take Tylenol alternating with Motrin every 4 hours while awake to keep her constitutional symptoms christopher. I have sent a prescription for Zofran to her pharmacy. <Sunil Lynch MD - Last Filed: 07/31/23 22:37> Vital Signs: 07/31/23 20:02 07/31/23 22:23 Temperature 98.9 F 98.2 F Temperature Source Oral Oral Pulse Rate 87 Pulse Rate [Left Radial] 102 H Respiratory Rate 18 18 Blood Pressure 108/62 L Blood Pressure [Right Arm] 144/84 H Blood Pressure Mean [Right Arm] 104 Blood Pressure Source Automatic Cuff Blood Pressure Source [Right Arm] Automatic Cuff Blood Pressure Position Sitting Blood Pressure Position [Right Arm] Sitting 02 Sat by Pulse Oximetry 100 Oxygen Delivery Method Room Air Room Air Lab Data Lab Results 07/31/23 20:45: WBC 6.4 D, RBC 3.42 L, Hgb 11.2 L, Hct 34.0 L, MCV 99.4 H, MCH 32.8 H, MCHC 33.0, RDW 13.5, Plt Count 579 H, MPV 8.1, Neut % (Auto) 56.1, Lymph % (Auto) 29.7, [place] % (Auto) 6.9, Eos % (Auto) 5.8, Baso % (Auto) 1.5, Neut # (Auto) 3.6, Lymph # (Auto) 1.9, [place] # (Auto) 0.4, Eos # (Auto) 0.4, Baso # (Auto) 0.1, Sodium 140, Potassium 3.8, Chloride 106, Carbon Dioxide 23, Anion Gap 14.8, BUN 14, Creatinine 0.70, Estimated Creat Clear 143, Estimated GFR 94, Est GFR ( Amer) 114, Glucose 96, Lactate 1.7, Calcium 8.7, Magnesium 2.2, Total Bilirubin 0.4, AST 73 H D, ALT 70 D, Alkaline Phosphatase 51, Total Protein 7.1, Albumin 3.9, Globulin 3.2, Albumin/Globulin Ratio 1.2, Lipase 36, Procalcitonin < 0.030 Orders (Tests/Meds): ED MEDICATIONS Discontinued Medications Generic Name Dose Route Start Last Admin Trade Name Freq PRN Reason Stop Dose Admin Acetaminophen 1,000 mg 07/31/23 20:26 07/31/23 20:56 Acetaminophen 1,000mg/100ml Vial IV 07/31/23 20:27 1,000 mg ONCE ONE Administration Lactated Ringer's 1,000 mls @ 999 mls/hr 07/31/23 20:26 07/31/23 20:56 Lactated Ringer's 1000 Ml Bag IV 07/31/23 21:26 999 mls/hr .Q1H1M ONE Administration Ketorolac Tromethamine 30 mg 07/31/23 20:26 07/31/23 20:56 Ketorolac 30mg/Ml Vial IV 07/31/23 20:27 30 mg ONCE ONE Administration Prochlorperazine Edisylate 10 mg 07/31/23 20:26 07/31/23 20:56 Prochlorperazine 10mg/2ml Vial IV 07/31/23 20:27 10 mg ONCE ONE Administration ORDERS Category Date Time Status CBC w/Auto Diff [Complete Blood Count Auto Diff] Stat Lab 07/31/23 20:45 Completed CMP [Comprehensive Metabolic Panel] Stat Lab 07/31/23 20:45 Completed Lactic Acid Stat Lab 07/31/23 20:45 Completed Lipase Stat Lab 07/31/23 20:45 Completed Magnesium Stat Lab 07/31/23 20:45 Completed Procalcitonin Stat Lab 07/31/23 20:45 Completed Medical Decision Narrative: In summary patient is a 88-year-old female who presents to the emergency department for evaluation of nausea vomiting dysuria back pain. Patient is normotensive but tachycardic at a heart rate 100 to satting at 100% on room air breathing 18 times a minute upon arrival, temperature of 99.7. Physical exam is remarkable for slight bilateral CVA tenderness to percussion. Differential diagnosis includes pyelonephritis versus failure of outpatient treatment versus nausea vomiting versus antibiotic reaction etc. Initial workup will be conducted with hematologic labs. Initial interventions include fluid bolus antiemetics Tylenol Toradol. Initial workup reviewed by me shows that her hematologic labs are nonactionable with a good creatinine and her white count is continuing to remain normal with no shift. Upon repeat evaluation patient has had improvement in her constitutional symptoms as not tachycardic is afebrile tolerating p.o. Given this I had interactive discussion with the patient regarding her initial diagnosis and projected course given that this is an organ infection not just a simple urinary tract infection. Patient given instructions to take Tylenol alternating with Motrin every 4 hours while awake to keep her constitutional symptoms christopher. I have sent a prescription for Zofran to her pharmacy. I was consulted by the KHADRA, and we discussed the complexity of the problems being addressed. I approved the treatment and management plan for this patient?s care in the Emergency Department, thus performing a substantive portion of the medical decision making. Because of patient on amoxicillin for UTI, switch to cefdinir. Sunil Lynch MD Critical Care <TRI Ornelas - Last Filed: 07/31/23 22:10> Critical Care Time Critical Care Time: No
[2023-07-31] MEDS: PROCHLORPERAZINE 10MG/2ML VIAL 10 MG IV (20:56)
[2023-07-31] MEDS: KETOROLAC 30MG/ML VIAL 30 MG IV (20:56)
[2023-07-31] MEDS: LACTATED RINGERS 1000ML 1,000 ML 999 ML IV (20:56)
[2023-07-31] MEDS: ACETAMINOPHEN 1,000MG/100ML VIAL 1000 MG IV (20:56)
[2023-07-31 21:05] LABS: Basophils # 0.1 K/mm3 (0-0.2); Basophils % 1.5 % (0.1-2.0); Eosinophils # 0.4 K/mm3 (0.0-0.4); Eosinophils % 5.8 % (0.1-12.0); Hemoglobin 11.2 g/dL (12.2-16.2); Lymphocytes # 1.9 K/mm3 (0.7-4.5); Lymphocytes % 29.7 % (10-50); Mean Corpuscular Hemoglobin 32.8 pg (27.0-31.2); Mean Corpuscular Volume 99.4 fl (81-99); Mean Platelet Volume 8.1 fl (7.4-10.4); Monocytes # 0.4 K/mm3 (0.1-1.0); Monocytes % 6.9 % (1.7-9.3); Neutrophils # 3.6 K/mm3 (1.8-7.8); Neutrophils % 56.1 % (37.0-80.0); Platelet Count 579 K/mm3 (142-424); Red Blood Count 3.42 M/mm3 (4.20-5.40); Red Cell Distribution Width 13.5 % (11.5-17.5); White Blood Count 6.4 K/mm3 (4.8-10.8)
[2023-07-31 21:27] LABS: Alanine Aminotransferase 70 U/L (12-78); Albumin Level 3.9 g/dl (3.5-5.0); Albumin/Globulin Ratio 1.2 (1.1-1.8); Alkaline Phosphatase 51 U/L (38-126); Anion Gap 14.8 mEq/L (5-15); Aspartate Amino Transferase 73 U/L (14-36); Bilirubin,Total 0.4 mg/dl (0.2-1.3); Blood Urea Nitrogen 14 mg/dl (7-17); Calcium 8.7 mg/dl (8.4-10.2); Carbon Dioxide 23 mmol/L (22.0-30.0); Chloride 106 mmol/L (98-107); Creatinine Clearance Estimated 143 mL/min (50-200); Estimated Glomerular Filt Rate 94 ml/min (>60); GFR (African American) 114 ML/MIN (>60); Globulin 3.2 g/dL (1.3-3.2); Glucose 96 mg/dl (74-100); Lipase 36 U/L (23-300); Magnesium 2.2 mg/dl (1.6-2.3); Potassium 3.8 mmoL/L (3.5-5.1); Sodium 140 mmol/L (136-145); Total Protein,Serum 7.1 g/dl (6.3-8.2)
[2023-07-31 21:28] LABS: Lactic Acid 1.7 mmol/L (0.7-2.1)
[2023-07-31 21:57] LABS: Procalcitonin < 0.030 ng/mL (0.0-2.0)
[2023-07-31 22:23] VITALS: BP 108/62; PULSE 87; RESP 18; TEMP 36.8; O2SAT 98
--- NOTE | 2023-08-10 03:03 | PC.NURSE ---
Records faxed to [facility]
== END 2023-07-31 22:26 | disposition home or self-care (01) ==
PROVIDERS: Physician Assistant; Emergency Provider Emergency Medicine; PCP Physician Assistant
DX: N10 Acute pyelonephritis (principal); M54.59 Other low back pain; R50.9 Fever, unspecified; R11.0 Nausea; R30.0 Dysuria
CPT/HCPCS: 80053; 83605; 83690; 83735; 84145; 85025; 96361; 96374; 96375; 99284; J0131; J1885; J7120

== ENCOUNTER 2023-08-15 15:12 | Outpatient (CLI) | payer OTHER, SELFPAY | END 2023-08-15 23:59 | disposition home or self-care (01) | LOC: LAB.DROPOF 15:12 | PROVIDERS: PCP Physician Assistant; Visit Provider Physician Assistant | DX: N39.0 Urinary tract infection, site not specified (principal); B95.7 Other staphylococcus as the cause of diseases classified elsewhere | CPT/HCPCS: 87086; 87088; 87186 ==

== ENCOUNTER 2023-08-29 09:52 | Outpatient (CLI) | payer OTHER, SELFPAY | END 2023-08-29 23:59 | disposition home or self-care (01) | LOC: LAB.DROPOF 08-30 09:53 | PROVIDERS: PCP Physician Assistant; Visit Provider Physician Assistant | DX: Z87.448 Personal history of other diseases of urinary system (principal); N39.0 Urinary tract infection, site not specified; B96.20 Unspecified Escherichia coli [E. coli] as the cause of diseases classified elsewhere | CPT/HCPCS: 87086; 87088; 87186 ==

== ENCOUNTER 2023-09-08 15:59 | Outpatient (CLI) | payer OTHER, SELFPAY ==
[2023-09-08 16:06] LABS: Microscopic, Urine URINE MICROSCOPIC (MICROSCOPIC)
[2023-09-08 18:14] LABS: Appearance,Urine CLEAR (Clear); Bilirubin,Urine Negative (Negative); Blood, Urine Negative (Negative); Color,Urine YELLOW (Yellow); Glucose,Urine (UA) Negative (Negative); Ketones,Urine Negative (Negative); Leukocyte Esterase,Urine Negative (Negative); Nitrate,Urine Negative (Negative); Protein,Urine Negative (Negative); Urobilinogen,Urine 0.2 EU/dl (0.2)
[2023-09-08 18:44] LABS: Bacteria,Urine Trace /lpf; Mucus,Urine Trace /lpf
== END 2023-09-08 23:59 | disposition home or self-care (01) ==
LOC: LAB 16:00
PROVIDERS: PCP Physician Assistant; Visit Provider Physician Assistant
DX: N39.0 Urinary tract infection, site not specified (principal); Z87.448 Personal history of other diseases of urinary system
CPT/HCPCS: 81001; 87086

== ENCOUNTER 2023-09-11 15:26 | Outpatient (CLI) | payer OTHER, SELFPAY | END 2023-09-11 23:59 | disposition home or self-care (01) | LOC: LAB.DROPOF 09-12 15:27 | PROVIDERS: PCP Physician Assistant; Visit Provider Physician Assistant | DX: N39.0 Urinary tract infection, site not specified (principal) | CPT/HCPCS: 87086; 87088 ==

== ENCOUNTER 2023-09-15 10:43 | Outpatient (CLI) | payer OTHER, SELFPAY ==
--- NOTE | 2023-09-15 10:43 | US_ITS ---
PROCEDURE INFORMATION: Exam: US Right Breast, Complete US Left Breast, Complete MG Bilateral Diagnostic Breast Tomosynthesis Exam date and time: 09/15/2023 11:12 AM Age: 38 years old Clinical indication: Palpable right breast mass TECHNIQUE: Imaging protocol: Complete ultrasound of all four quadrants of the right breast and the retroareolar regions, including ultrasound of the axilla when performed. Complete ultrasound of all four quadrants of the left breast and the retroareolar regions, including ultrasound of the axilla when performed. Bilateral Diagnostic tomosynthesis and 2D mammography including computer-aided detection (CAD) when performed. Unilateral or bilateral exam. COMPARISON: No relevant prior studies available. FINDINGS: MAMMOGRAPHY: Breast composition: The breasts are heterogeneously dense, which may obscure small masses. Breast mammogram findings: There is no stellate mass, architectural distortion or suspicious microcalcifications in either breast to suggest malignancy. No skin thickening or axillary adenopathy. ULTRASOUND: Breast ultrasound findings: Sonographic images of both breasts including the retroareolar regions, all 4 quadrants and the axilla demonstrates a questionable lobulated hypoechoic solid mass in the left retroareolar region versus an island of normal fibroglandular structures measuring 1.7 x 1.2 x 0.6 cm. Probable debris-filled cyst measuring 0.8 x 0.8 cm in greatest dimension is noted in the right 10 o'clock axis 6 cm from the nipple. Similar appearing well-circumscribed hypoechoic mass in the right retroareolar region likely represents an additional debris-filled cyst measuring 0.5 x 0.6 cm in dimension. Well-circumscribed cutaneous mass in the right 4 o'clock axis 8 cm from the nipple measuring 0.5 x 0.5 x 0.6 cm corresponds to the patient's complaint of a palpable abnormality.. Minimal subcentimeter cystic change is present bilaterally. No architectural distortion or acoustical shadowing. No skin thickening or axillary adenopathy. IMPRESSION: 1. Palpable abnormality in the right breast corresponds to a cutaneous lesion likely representing a sebaceous cyst. 2. Questionable left retroareolar solid mass. A six-month follow-up targeted left breast ultrasound is recommended to ensure stability over time. 3. Probable debris-filled cysts in the right breast as described above. A targeted right breast ultrasound is recommended to ensure stability over time. ASSESSMENT: BI-RADS Category 3: Probably benign.
--- NOTE | 2023-09-15 10:43 | US_ITS ---
FINAL REPORT CLINICAL HISTORY: RUQ pain, back pain, vomiting COMPARISON: None FINDINGS: Sonographic images of the right upper quadrant were obtained. The pancreas is mostly obscured.The liver has an unremarkable appearance. There is mild sludge present in the gallbladder without evidence of gallstones. There is no evidence of biliary ductal dilatation.The common duct measures 4mm. Limited images of the right kidney are unremarkable. IMPRESSION: Mild sludge present in the gallbladder without evidence of gallstones. Reviewed, Interpreted and Dictated by Camilo Wright MD Transcribed by Roxane Soriano Authenticated and [facility]
== END 2023-09-15 23:59 | disposition home or self-care (01) ==
LOC: RAD 10:43
PROVIDERS: PCP Physician Assistant; Visit Provider Physician Assistant
DX: R10.11 Right upper quadrant pain (principal); N64.89 Other specified disorders of breast
CPT/HCPCS: 76641; 76705; 77062; 77066; G0279

== ENCOUNTER 2023-09-18 17:24 | Outpatient (CLI) | payer OTHER, SELFPAY ==
[2023-09-22 17:43] LABS: Atopobium vaginae Low - 0 Score (.); BVAB2 Low - 0 Score (.); Candida albicans NAA Negative (Negative); Candida glabrata Negative (Negative); Chlamydia Trachomatis NAA Negative (Negative); HSV 1 NAA Negative (Negative); HSV 2 NAA Negative (Negative); Megasphaera 1 Low - 0 Score (.); Neisseria gonorrhoeae NAA Negative (Negative); Trich vag NAA Negative (Negative)
== END 2023-09-18 23:59 | disposition home or self-care (01) ==
LOC: LAB.DROPOF 17:25
PROVIDERS: PCP Urology; Visit Provider Urology
DX: N89.8 Other specified noninflammatory disorders of vagina (principal); N39.0 Urinary tract infection, site not specified; Z87.448 Personal history of other diseases of urinary system
CPT/HCPCS: 87491; 87529; 87591; 87661; 87798; 87801

== ENCOUNTER 2023-09-29 10:21 | Outpatient (CLI) | payer OTHER, SELFPAY ==
--- NOTE | 2023-09-29 10:22 | NM_ITS ---
FINAL REPORT CLINICAL HISTORY: gallbladder sludge back pain during cck 10:30 am 8.59 mci tc choletec 1.6 mg of cck COMPARISON: None FINDINGS: Sequential anterior projection images of the abdomen were obtained after the intravenous injection of 8.59 mCi technetium 99m Choletec. There is normal uptake of radiotracer by the liver. The bile ducts are visualized by 10 minutes. Gallbladder activity is seen by 20 minutes. Bowel activity is noted by 10 minutes. After 1 hour, 1.6 ?g of CCK was injected intravenously for calculation of gallbladder ejection fraction. The gallbladder ejection fraction is 39%, which is within normal limits. IMPRESSION: No evidence of cystic duct or bile duct obstruction. Normal gallbladder ejection fraction of 39%. Reviewed, Interpreted and Dictated by Surinder Garcia III, MD Transcribed by Roxane Soriano Authenticated and [facility]
[2023-09-29] MEDS: SINCALIDE 1.6 MCG in 0.9 % SODIUM CHLORIDE 50 ML 100 MCG IV (11:20)
[2023-09-29] MEDS: SODIUM CHLORIDE 0.9% 10ML SYR (RAD ONLY) 10 ML IV (11:20)
[2023-09-29] MEDS: ISOTOPE CHOLETECH;1 DOSE (UP TO 15 MCI) IV (11:20)
== END 2023-09-29 23:59 | disposition home or self-care (01) ==
LOC: RAD 10:22
PROVIDERS: PCP Physician Assistant; Referring Provider Urology; Visit Provider Physician Assistant
DX: R10.9 Unspecified abdominal pain (principal)
CPT/HCPCS: 78227; A9537; J2805

== ENCOUNTER 2023-09-29 18:16 | Emergency (ER) | payer OTHER, SELFPAY ==
[2023-09-29 18:18] VITALS: BP 161/82; PULSE 88; RESP 18; TEMP 37; O2SAT 100; BMI 28.1
[2023-09-29 18:50] LABS: Basophils # 0.1 K/mm3 (0-0.2); Eosinophils # 0.4 K/mm3 (0.0-0.4); Eosinophils % 4.7 % (0.1-12.0); Hematocrit 41.3 % (37.0-47.0); Hemoglobin 13.5 g/dL (12.2-16.2); Lymphocytes # 1.9 K/mm3 (0.7-4.5); Lymphocytes % 24.9 % (10-50); Mean Corpuscular HGB Conc 32.6 g/dL (31.8-35.4); Mean Corpuscular Hemoglobin 32.1 pg (27.0-31.2); Mean Corpuscular Volume 98.5 fl (81-99); Monocytes # 0.5 K/mm3 (0.1-1.0); Monocytes % 6.5 % (1.7-9.3); Neutrophils # 4.6 K/mm3 (1.8-7.8); Neutrophils % 62.9 % (37.0-80.0); Platelet Count 492 K/mm3 (142-424); Red Blood Count 4.19 M/mm3 (4.20-5.40); White Blood Count 7.4 K/mm3 (4.8-10.8)
[2023-09-29 19:00] LABS: Albumin Level 4.4 g/dl (3.5-5.0); Chloride 107 mmol/L (98-107); Potassium 4.2 mmoL/L (3.5-5.1); Sodium 139 mmol/L (136-145)
[2023-09-29 19:02] LABS: Blood Urea Nitrogen 16 mg/dl (7-17); Creatinine Clearance Estimated 99 mL/min (50-200); Estimated Glomerular Filt Rate 62 ml/min (>60); GFR (African American) 75 ML/MIN (>60)
[2023-09-29 19:03] LABS: Alanine Aminotransferase 25 U/L (12-78); Albumin/Globulin Ratio 1.5 (1.1-1.8); Alkaline Phosphatase 58 U/L (38-126); Anion Gap 11.2 mEq/L (5-15); Aspartate Amino Transferase 25 U/L (14-36); Bilirubin,Total 0.4 mg/dl (0.2-1.3); Calcium 9.3 mg/dl (8.4-10.2); Carbon Dioxide 25 mmol/L (22.0-30.0); Glucose 96 mg/dl (74-100); Total Protein,Serum 7.4 g/dl (6.3-8.2)
--- NOTE | 2023-09-29 19:44 | HMH.EDGENADL ---
Discharge Plan Disposition Patient Disposition: Home, Self-Care Condition: Good Prescriptions Prescriptions: New cefdinir 300 mg capsule 300 mg PO BID 10 Days Qty: 20 0RF No Action buspirone 15 mg tablet 15 mg PO TID Patient Comments: TAKE 1 TABLET BY MOUTH THREE TIMES A DAY bupropion HCl 300 mg tablet extended release 24 hr 300 mg PO DAILY Patient Comments: TAKE 1 TABLET BY MOUTH EVERY DAY nitrofurantoin macrocrystal [Macrodantin] 100 mg capsule 100 mg PO HS Qty: 30 0RF Rx Instructions: must administer with a meal/food estradiol 0.01 % (0.1 mg/gram) cream See Rx Instructions vaginal .COMPLEX Qty: 42.5 2RF Rx Instructions: Using finger technique daily for two weeks and then twice weekly vaginally; phenazopyridine [Pyridium] 200 mg tablet 200 mg PO TID 4 Days Qty: 12 1RF oxybutynin chloride 10 mg tablet extended release 24hr 10 mg PO DAILY Qty: 90 3RF ondansetron 8 mg tablet,disintegrating 8 mg PO Q8H PRN (Reason: nausea and vomiting) Qty: 30 0RF levonorgestrel-ethinyl estrad [Aviane] 0.1-20 mg-mcg tablet 1 tab PO DAILY Qty: 28 3RF Referrals Follow up/Referrals: Ana Berumen PA [Primary Care Provider] - See instructions Activity Restrictions/Add. Instructions Additional Instructions/Restrictions: You were evaluated in the ER and are appropriate for discharge at this time. Continue your home medications as previously prescribed. Urine culture pending. Follow-up with urology and your primary care physician. Return to the ER with new, worsening, or otherwise concerning symptoms. Clinical Impressions Clinical Impression: Dysuria Print Language Print Language: Salvadorean Discharge ED Provider: Eve Liao Adult HPI General Chief complaint: Weakness Stated complaint: Upper and lower back pain,nausea,body aches Time Seen by Provider: 09/29/23 19:06 Mode of Arrival: Ambulatory Source of Information: Patient Limitations: No Limitations Description of Symptoms (Recalled from ER Triage Doc. by RN): c/o upper and lower back pain, feeling weak, unable to lift arms up without pain, nausea and vomiting, whole body feeling like it is burning since last night, pt states she always has these symptoms but they have gotten worse since last night, chronic uti History of Present Illness HPI narrative: [id number] female presents to the ER for complaints of lower back pain,, nausea, vomiting, burning sensation with urination. Patient has a history of recurrent UTI, previously septic requiring admission. She is currently on Macrobid from the urologist. Urology evaluated the patient on 09/18/2023. I reviewed this note. She had had evidence of E. coli UTI sensitive to Macrobid so he prescribed Macrobid, oxybutynin, estradiol cream. Most recent note from patient's primary care demonstrates patient was started on Uribel at the end of August. She had been previously given doxycycline, cefdinir. CT abdomen pelvis has never demonstrated kidney stones, patient reports she starts to get nervous when she starts having nausea and vomiting because those were symptoms consistent with her sepsis previously. She reports she has been told by the urologist she may need a catheter, but she would like to be scoped before catheter is empirically placed. Patient does not have fevers, chest pain, difficulty breathing. She had a HIDA scan today which does not demonstrate any findings of cystic duct or bile duct obstruction, normal gallbladder EF. Related Data Home Medications ?Medication ?Instructions ?Recorded ?Confirmed bupropion HCl 300 mg 24 hr tablet, 300 mg PO DAILY 07/27/23 09/18/23 extended release buspirone 15 mg tablet 15 mg PO TID 07/27/23 09/18/23 Previous Rx's ?Medication ?Instructions ?Recorded levonorgestrel-ethinyl estradiol 1 tab PO DAILY #28 tabs 07/28/23 0.1 mg-20 mcg tablet (Aviane) ondansetron 8 mg disintegrating 8 mg PO Q8H PRN nausea and 09/11/23 tablet vomiting #30 tabs estradiol 0.01% (0.1 mg/gram) See Rx Instructions vaginal 09/18/23 vaginal cream .COMPLEX #42.5 grams nitrofurantoin macrocrystal 100 mg 100 mg PO HS #30 caps 09/18/23 capsule (Macrodantin) oxybutynin chloride 10 mg 10 mg PO DAILY #90 tabs 09/18/23 tablet,extended release 24 hr phenazopyridine 200 mg tablet 200 mg PO TID 4 days #12 tabs 09/18/23 (Pyridium) cefdinir 300 mg capsule 300 mg PO BID 10 days #20 caps 09/29/23 Allergies Allergy/AdvReac Type Severity Reaction Status Date / Time levofloxacin [From Levaquin] Allergy Verified 09/18/23 13:28 [facility] Disclaimer: The information contained in this section may have been updated after the patient was seen, as this information can be updated by other users. Medical History Lower abdominal pain Recurrent urinary tract infection Vaginal discharge Urinary tract infection Surgical History Status post open reduction and internal fixation (ORIF) of fracture History of section Family History Other Family history of cancer Social History Smoking Status: Unknown if ever smoked alcohol intake: current alcohol intake frequency: a few times a month substance use type: denies use current occupational status: employed Travel in the last 8 weeks: Inside the [place] ROS Obtained: Yes All systems reviewed & no additional complaints except as documented Positive ROS per HPI Physical Exam General General appearance: alert and in no apparent distress Head Head exam: atraumatic and normocephalic Eye Eye exam: Present PERRL and EOMI ENT ENT exam: Present mucous membranes moist Neck Neck exam: Present normal inspection and full ROM Chest Chest inspection: Present symmetric chest wall rise Respiratory Respiratory exam: Absent respiratory distress or stridor Cardiovascular Cardiovascular exam: Present regular rate and normal rhythm Abdominal Exam Abdominal exam: Present soft and tenderness (Mild suprapubic); Absent distention, guarding or rebound Extremities Exam Extremities exam: Present full ROM Back Exam Back exam: Present CVA tenderness (R) (Right worse than left) and CVA tenderness (L) Neurological Exam Neurological exam: Present alert and oriented X3; Absent motor sensory deficit Psychiatric Psychiatric exam: Present normal affect and normal mood Skin Skin exam: Present warm and dry Medical Decision Making Medical Records Medical records reviewed: Yes I reviewed the patient's medical records. MR Comment: See HPI Eren Inquiry Pt receiving controlled substance: No Vital Signs: 09/29/23 18:18 09/29/23 22:00 Temperature 98.6 F 98.7 F Temperature Source Oral Oral Pulse Rate 72 Pulse Rate [Left Radial] 88 Respiratory Rate 18 18 Blood Pressure 126/70 Blood Pressure [Right Arm] 161/82 H Blood Pressure Mean [Right Arm] 108 Blood Pressure Source [Right Arm] Automatic Cuff Blood Pressure Position [Right Arm] Sitting 02 Sat by Pulse Oximetry 100 Oxygen Delivery Method Room Air Room Air Lab Data Lab Results 09/29/23 18:30: WBC 7.4, RBC 4.19 L, Hgb 13.5, Hct 41.3, MCV 98.5, MCH 32.1 H, MCHC 32.6, RDW 13.0, Plt Count 492 H, MPV 8.0, Neut % (Auto) 62.9, Lymph % (Auto) 24.9, [place] % (Auto) 6.5, Eos % (Auto) 4.7, Baso % (Auto) 1.0, Neut # (Auto) 4.6, Lymph # (Auto) 1.9, [place] # (Auto) 0.5, Eos # (Auto) 0.4, Baso # (Auto) 0.1, Sodium 139, Potassium 4.2, Chloride 107, Carbon Dioxide 25, Anion Gap 11.2, BUN 16, Creatinine 1.00, Estimated Creat Clear 99, Estimated GFR 62, Est GFR ( Amer) 75, Glucose 96, Calcium 9.3, Total Bilirubin 0.4, AST 25, ALT 25, Alkaline Phosphatase 58, Total Protein 7.4, Albumin 4.4, Globulin 3.0, Albumin/Globulin Ratio 1.5, Urine Color Cancelled, Urine Appearance Cancelled, Urine pH Cancelled, Ur Specific [place] Cancelled, Urine Protein Cancelled, Urine Glucose (UA) Cancelled, Urine Ketones Cancelled, Urine Blood Cancelled, Urine Nitrate Cancelled, Urine Bilirubin Cancelled, Urine Urobilinogen Cancelled, Ur Leukocyte Esterase Cancelled, Urine RBC Cancelled, Urine WBC Cancelled, Ur Squamous Epith Cells Cancelled, Ur Transition Epith Cell Cancelled, Ur Renal Epithelial Cell Cancelled, Calcium Carbonate Cryst Cancelled, Calcium Phosphate Cryst Cancelled, Calcium Oxalate Crystal Cancelled, Cystine Crystals Cancelled, Uric Acid Crystals Cancelled, Triple Phos Crystals Cancelled, Tyrosine Crystals Cancelled, Other Crystals Cancelled, Amorphous Sediment Cancelled, Other Sediment Cancelled, Urine Bacteria Cancelled, Fatty Casts Cancelled, Hyaline Casts Cancelled, Fine Granular Casts Cancelled, Coarse Granular Casts Cancelled, Waxy Casts Cancelled, RBC Casts Cancelled, WBC Casts Cancelled, Other Casts Cancelled, Urine Mucus Cancelled, Urine Trichomonas Cancelled, Urine Yeast Cancelled, Urine Sperm Cancelled 09/29/23 20:37: Urine Color Yellow, Urine Appearance Clear, Urine pH 7.0, Ur Specific [place] 1.020, Urine Protein Negative, Urine Glucose (UA) Negative, Urine Ketones Negative, Urine Blood Negative, Urine Nitrate Negative, Urine Bilirubin Negative, Urine Urobilinogen 0.2, Ur Leukocyte Esterase Negative, Urine RBC None, Urine WBC None, Ur Squamous Epith Cells Occasional, Amorphous Sediment Trace, Urine Bacteria Trace 09/29/23 18:30 09/29/23 18:30 Orders (Tests/Meds): ED MEDICATIONS Discontinued Medications Generic Name Dose Route Start Last Admin Trade Name Freq PRN Reason Stop Dose Admin Cefdinir 300 mg 09/30/23 09:00 Cefdinir 300mg Capsule PO 10/10/23 08:59 DAILY RAMAKRISHNA Cefdinir 300 mg 09/29/23 21:57 09/29/23 21:59 Cefdinir 300mg Capsule PO 10/09/23 21:56 300 mg DAILY RAMAKRISHNA Administration ORDERS Category Date Time Status Complete Blood Count Auto Diff Stat Lab 09/29/23 18:30 Completed Comprehensive Metabolic Panel Stat Lab 09/29/23 18:30 Completed Urinalysis and Microscopic Routine Lab 09/29/23 20:37 Completed Urine Culture Stat Micro 09/29/23 23:32 Ordered Medical Decision Narrative: In summary, this 38-year-old female presents to the emergency department today with abdominal pain, back pain, dysuria. Comorbidities of current condition include history of recurrent UTI/pyelonephritis which increases risk of recurrence. On initial evaluation patient is hemodynamically stable, afebrile, suprapubic tenderness to palpation of the abdomen, bilateral CVA tenderness, right worse than left. Remainder of exam benign. Differential diagnosis includes but is not limited to urinary tract infection, pyelonephritis, cystitis without infection. I considered possibility of kidney stones however patient's symptoms have been gradual in onset over the last few days which goes against the likelihood of kidney stones. Based on these concerns, I ordered serum labs to assess kidney function, urine studies. Labs personally reviewed demonstrate no leukocytosis or anemia, CMP normal, first UA was contaminated with squamous cells. I did not want this cultured since patient has a history of unclean catches which could be skewing culture results. UA was not convincing for infection. Repeat UA with a truly clean-catch was sent out for culture. This is also negative for overt findings of infection though there are trace bacteria. Patient on further discussion did have a gap in taking her Macrobid which increases the likelihood that patient could have subacute infection that has seeded in the kidney since Macrobid does not penetrate the kidney well. Given this and pending culture, out of an abundance of caution I am switching the patient to cefdinir which better penetrate the kidneys until culture results. Patient received oral dose of cefdinir in the ER. She is appropriate for discharge at this time. Patient was given instructions on symptomatic management, follow up instructions, and return precautions for the emergency department. Patient indicated understanding and was discharged in stable condition. Critical Care Critical Care Time Critical Care Time: No
[2023-09-29 20:43] LABS: Microscopic, Urine URINE MICROSCOPIC (MICROSCOPIC)
[2023-09-29 21:45] LABS: Appearance,Urine CLEAR (Clear); Bilirubin,Urine Negative (Negative); Blood, Urine Negative (Negative); Color,Urine Yellow (Yellow); Glucose,Urine (UA) Negative (Negative); Ketones,Urine Negative (Negative); Leukocyte Esterase,Urine Negative (Negative); Nitrate,Urine Negative (Negative); Protein,Urine Negative (Negative); Urobilinogen,Urine 0.2 EU/dl (0.2)
[2023-09-29 21:48] LABS: Amorphous Sediment,Urine Trace /lpf; Bacteria,Urine Trace /lpf; Squamous Epithelial Cell,Urine Occasional #/hpf (0-5)
[2023-09-29] MEDS: CEFDINIR 300MG CAPSULE 300 MG PO (21:59)
[2023-09-29 22:00] VITALS: BP 126/70; PULSE 72; RESP 18; TEMP 37.1; O2SAT 98
== END 2023-09-29 22:01 | disposition home or self-care (01) ==
PROVIDERS: Emergency Provider Emergency Medicine; PCP Physician Assistant
DX: R30.0 Dysuria (principal); R11.2 Nausea with vomiting, unspecified; M54.50 Low back pain, unspecified
CPT/HCPCS: 80053; 81001; 85025; 87086; 99283

== ENCOUNTER 2024-12-02 08:51 | Outpatient (CLI) | payer OTHER, SELFPAY ==
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
--- NOTE | 2024-12-02 09:00 | US_ITS ---
PROCEDURE INFORMATION: Exam: US Right Breast, Complete Exam date and time: 12/02/2024 9:05 AM Age: 39 years old Clinical indication: Right; Breast pain; Additional info: Right breast lump TECHNIQUE: Imaging protocol: Complete ultrasound of all four quadrants of the right breast and the retroareolar regions, including ultrasound of the axilla when performed. COMPARISON: US BREAST RT COMPLETE 09/15/2023 11:12 AM FINDINGS: ULTRASOUND: Breast ultrasound findings: Sonographic images of the right 4 o'clock axis 8 cm nipple where the patient reports a palpable abnormality demonstrates a 1.3 x 1.4 x 0.6 cm cutaneous ovoid mass increased in size compared to prior sonogram dated 09/15/2023 felt to reflect a sebaceous cyst. Sonographic images of the right 10 o'clock axis 6 cm from the nipple demonstrates a stable round hypoechoic mass measuring 0.6 x 0.5 x 0.6 cm. Sonographic images of the right 6 o'clock retroareolar region demonstrates a stable hypoechoic well-circumscribed mass measuring 0.5 x 0.5 x 0.3 cm. No axillary adenopathy IMPRESSION: Interval increase in size of a cutaneous mass in the right breast corresponding to the patient's complaint of a palpable abnormality. Dermatologic consultation is recommended. Remaining probably benign masses are stable compared to prior sonogram dated 09/15/2023. A six-month follow-up targeted sonogram is recommended for continued close surveillance. ASSESSMENT: BI-RADS Category 3: Probably benign.
--- OUTSIDE RECORDS SUMMARY | 2024-12-02 09:05 | XMS_ITS | Encounter Summary ---
Author Organization Healthcare Address [address] [place] [address] Care Team Providers Care Director Of Donor Relations Name Role Phone Vanessa Birmingham STRAP SEWER Unavailable [phone] Ana Berumen Primary Care Provider [phone] Reason for Visit * Reason Onset Date Comments Resolve mdx results 11/28/2024 Encounter Details Date Type Department Care Team (Late st Contact Info) Description 11/28/2024 Telephone [facility] [address] [place] [address] Vanessa Birmingham, STRAP SEWER [address] [place] [address] Resolve mdx results Social History Tobacco Use Types Packs/Day Years [...] on file documented as of this encounter Miscellaneous Notes * Telephone Encounter - Renetta Watson - 11/28/2024 5:53 PM EDT Resolve mdx result received and uploaded to mm. documented in this encounter Plan of Treatment Upcoming Encounters Date Type Department Care Team (Late st Contact Info) Description 01/28/2025 11:00 AM EST [facility] [address] [place] [address] Vanessa Birmingham APRN [address] [address] documented as of this encounter Visit Diagnoses Not on filedocumented in this encounter Additional Health Concerns Assessment Noted Time PHQ-9 Depression Total Score: 0 11/27/19 10:57 AM EDT A fall risk assessment has been complete d for the patient 11/26/2024 10:58 AM EDT A Body Mass Index follow-up plan has been documented for the patient 11/26/2024 11:42 AM EDT documented as of this encounter Care Teams Director Of Donor Relations Relationship Specialty Start Date End Date Ana Berumen PA [address] [place] [address] PCP - General 11/22/24 Vanessa Birmingham APRN [id number] [place] [address] Nurse Practitioner Urology 04/19/24 documented as of this encounter
--- OUTSIDE RECORDS SUMMARY | 2024-12-02 09:05 | XMS_ITS | Encounter Summary ---
Author Organization Healthcare Address [address] [place] [address] Care Team Providers Care Client Support Consultant Name Role Phone Vanessa Birmingham RADIOGRAPHER ANGIOGRAM Unavailable [phone] Ana Berumen Primary Care Provider [phone] Encounter Details Date Type Department Care Team (Latest Contact Info) Description 11/22/2024 Travel Social History Tobacco Use Types Packs/Day Years Used Date Smoking Tobacco: Former Cigarettes Smokeless Tobacco: Former Comments:currently vapes wing ly Alcohol Use Standard Drinks/Week Comments Not Currently 0 (1 standard drink = 0.6 oz pur e alcohol) PHQ-2 Answer Date Recorded Patient Health Questionnaire-2 Score 0 04/19/2024 Comments No Sex and Gender Information Value Date Recorded Sex Assigned at Not on file Legal Sex Female 8:26 PM EDT Gender Identity Not on file Sexual Orientation Not on file documented as of this encounter Plan of Treatment Upcoming Encounters Date Type Department Care Team (Late st Contact Info) Description 01/28/2025 11:00 AM EST Office [facility] [place] [facility] [address] [place] [address] Vanessa Birmingham, RADIOGRAPHER ANGIOGRAM [address] [place] [address] documented as of this encounter Visit Diagnoses Not on filedocumented in this encounter Additional Health Concerns Assessment Noted Time A fall risk assessment has been complete d for the patient 04/19/2024 9:42 AM EST A Body Mass Index follow-up plan has been documented for the patient 07/29/2024 11:43 AM EDT documented as of this encounter Care Teams Client Support Consultant Relationship Specialty Start Date End Date Ana Berumen PA [address] [place] [address] PCP - General 11/22/24 Vanessa Birmingham APRN [address] [place] [id number] Nurse Practitioner Urology 04/19/24 documented as of this encounter
--- OUTSIDE RECORDS SUMMARY | 2024-12-02 09:05 | XMS_ITS | Clinical Summary ---
[facility] Address [address] [place] [address] Care Team Providers Care Jewelry Dipper Name Role Phone Ana Berumen Primary Care Provider [phone] Allergies Active Allergy Reactions Criticality Noted Date Comments Levofloxacin Hives 08/10/2023 Medications Vit-Fe Fumarate-FA ( ) 27-1 MG tablet tablet Take 1 tablet by mouth Daily. Active ibuprofen (ADVIL,MOTRIN) 600 MG tablet Take 1 tablet by mouth Every 6 (Six) Hours As Needed for Mild Pain 20 tablet 01/18/2019 9:00 AM EST 9 Active hydrocortisone (ANUSOL-HC) 2.5 % rectal cream Insert into the rectum 3 (Three) Times a Day As Needed for Hemorrhoids . 28 g 01/18/2019 9:00 AM EST 9 Active fluconazole (DIFLUCAN) 150 MG tablet Take 1 tablet by mouth As Needed (yeast infection) for up to 2 doses. 1 tablet 4 Active ondansetron ODT (ZOFRAN-ODT) [address] 1 tablet on the tongue Every 8 (Eight) Hours As Needed for Nausea or Vomiting. 30 tablet 5 Active Active Problems Problem Noted Date Diagnosed Date 39 weeks gestation of 01/15/2019 delivery delivered 01/15/2019 Immunizations Immunization Administration Dates Next Due MMR 01/18/2019() Rho (D) Immune Globulin 01/15/2019 Family History Medical History Relation Name Comments Prostate cancer Father Lupus Mother Relation Name Status Comments Father Mother Social History Tobacco Use Types Packs/Day Years Used Date Smoking Tobacco: Former Cigarettes Q uit: 04/2018 Smokeless Tobacco: Never Alcohol Use Standard Drinks/Week Comments No 0 (1 standard drink = 0.6 oz pur e alcohol) AUDIT-C Answer Date Recorded Frequency of Alcohol Consumption Never 01/13/2019 Average Number of Drinks Not on file 019 Frequency of Binge Drinking Not on file 02/2018 Hunter Depression Scale Answer Date Recorded Hunter Depression Scale Total 16 01/16/2019 The thought of harming myself has occurred to me . Unrecognized value 01/16/2019 Abuse Screen Answer Date Recorded Feels Unsafe at Home or Work/School no 04/13/2024 Feels Threatened by Someone no 02/2024 Does Anyone Try to Keep You From Having Contact with Others or Doing Things Outside Your Home? no 04/13/2024 Physical Signs of Abuse Present no 04/13/2024 Comments No Sex and Gender Information Value Date Recorded Sex Assigned at Not on file Legal Sex Female 3:20 PM EDT Gender Identity Not on file Sexual Orientation Not on file Last Filed Vital Signs Vital Sign Reading Time Taken Comments Blood Pressure 109/68 04/13/2024 4:30 AM EST Pulse 72 04/13/2024 4:30 AM EST Temperature 36.7 C (98 F) 04/13/2024 3:11 AM EST Respiratory Rate 17 04/13/2024 3:11 AM EST Oxygen Saturation 96% 04/13/2024 4:30 AM EST Inhaled Oxygen Concentration - - Weight 78.9 kg (174 lb) 04/13/2024 3:11 AM EST Height 170.2 cm (5' 7 ) 04/13/2024 3:11 AM EST Body Mass Index 27.25 04/13/2024 3:11 AM EST Plan of Treatment Health Maintenance Due Date Last Done Comments Annual Gynecologic Pelvic an d Breast Exam 1986 TDAP/TD VACCINES (1 - Tdap) 2005 ANNUAL PHYSICAL 01/08/2019 HEPATITIS C SCREENING 01/08/2019 INFLUENZA VACCINE 09/13/2024 Pneumococcal Vaccine 0-49 Aged Out No longer eligible based on patient's age to complete this topic Insurance [place] [id number] [facility] Advance Directives * CPR (Attempt to Resuscitate) (Latest Code Status on File) Date Activated Date Inactivated Comments 01/15/2019 2:54 PM 01/18/2019 4:14 PM Question Answer Comments Code Status (Patient has no pulse and is not breathing): CPR (Attempt to Resuscitate) Medical Interventions (Patie nt has pulse or is breathing): Full Care Teams Jewelry Dipper Relationship Specialty Start Date End Date Ana Berumen PA PCP - General Physician Brick Loader 09/02/23
--- OUTSIDE RECORDS SUMMARY | 2024-12-02 09:05 | XMS_ITS | Patient Health Record ---
Author Organization [facility] Address [address] [facility] [address] [place] [address] Care Team Providers Care Shape Carver Name Role Phone Jessica Jean [phone] Allergies Allergen (clinical drug ingredient) Drug/Non Drug Allergy documented on EMR Reaction Allergy Type Onset Date Status LEVAQUIN (LEVOFLOXACIN TABS) Unspecified Drug Allergy 06/22/2018 Active Reason For Referral No Information Medications Medication SIG (Take, Route, Frequency, Duration) Notes Start Date End Date Status Diflucan 150 MG Tablet 1 tablet Orally n ow, may repeat in 72 hours prn; Duration: 4 days 07/25/2023 Active Triazolam Active Slynd 4 MG Tablet 1 tablet Orally Once a day; Duration: 84 days Not-Taking/PRN Doxycycline Hyclate 100 MG Tablet 1 tablet Orally Twice a day; Duration: 7 days 06/17/2022 Not-Taking/PRN buPROPion HCl ER (XL) Active Azithromycin 1 GM Packet as directed Orally once 06/17/2022 Not-Taking/PRN Amoxicillin 500 MG Capsule 1 capsule Orally every 8 hrs; Duration: 7 days 06/28/2022 Not-Taking/PRN Wellbutrin Active Bactrim Active BuSpar Active Social History Tobacco Use: Social History Observation Description Date Details (start date - stop date) Current Smoker NA - NA Social History Sexual History: Social Info Question Answer Notes Sexual History Had sex in the past 12 months (vaginal, oral, or anal)? Yes Drugs/Alcohol: Social Info Question Answer Notes Drugs Have you used drugs other than those for medical reasons in the past 12 months? No Steroid Use Have you used anabolic (body building) st eroids? No Alcohol Screen Did you have a drink containing alcohol in the past year? No Points 0 Interpretation Negative Tobacco Use: Social Info Question Answer Notes Tobacco Use/Smoking Are you a current smoker Tobacco use other than smoking: Are you an other tobacco user? Yes VAPE Additional Details Category Social Info Options Details Miscellaneous: Caffeine: 2-3 cups per day Migrated Social History Drugs/Alcohol: de nies/denies Tobacco Use: denies Problems Problem Type SNOMED Code ICD Code Onset Dates Problem Status W/U Status Risk Notes Problem Gynecological examination abnormal (85407059646865 3) *Applications Chemist exam with abnormal finding (Code also - abnormal finding(s) (Z01.411) 021 Active confirmed Annual with abnormal findings Problem Gynecological examination normal (82017548302492 4) Cervical smear, as part of routine gynecological examination (Z01.419) 020 Active confirmed Annual without abnormal findings Problem Breast lump on right side at 1 o'clock position (N63.12) 022 Active confirmed Unspecified lump in the right breast, upper inner quadrant Problem Vaginitis (50186519) Vaginitis (N76.0) Active confirmed Problem Vaginal discharge (176744195) Vaginal discharge (N89.8) Active confirmed Problem Vaginal odor (522782345) Vaginal odor (N94.9) Active confirmed Problem Chronic vaginitis (31589491) Chronic vaginitis (N76.1) Active confirmed Problem Hair follicle disorder (125549000) 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 confirmed Problem Pain in pelvis (59211870) Pelvic pain (R10.2) Active confirmed Plan Of Treatment No Information Insurance Providers Payer Name Payer Address Payer Phone Subscriber Number Group Number Insured Name Patient Relationship to Insured Coverage Start Date Coverage End Date [facility] [place] Claims Dept [address] [place] [address] [id number] Taty Wade Self - patient is the insured Medical (General) History Medical History History ICD Code Abnormal pap - HPV BV PID UTI Yeast infection Depression 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
--- OUTSIDE RECORDS SUMMARY | 2024-12-02 09:05 | XMS_ITS | Encounter Summary ---
Author Organization Healthcare Address [address] [place] [address] Care Team Providers Care Certified Procedural Coder Name Role Phone Vanessa Birmingham APRN Unavailable [phone] Ana Berumen Primary Care Provider [phone] Reason for Visit * Reason Onset Date Comments HCN Clinical Concern/Question 11/22/2024 Encounter Details Date Type Department Care Team (Late st Contact Info) Description 11/22/2024 Telephone [facility] [address] [place] [address] Tiffani Alex, GERRI, DNP [address] [place] [address] HCN Clinical Concern/Question Social History Tobacco Use Types Packs/Day Years [...] encounter Miscellaneous Notes * Telephone Encounter - Priscila Jacobo - 11/22/2024 12:49 PM EDT Clinical Concern/Question Reason for Call: Patient is calling she wanted to see if she was tested fro Uroplamsa. She states there is something going on cause she is in a lot of pain. She state Provider Isai sent her a message on my chart. Please call patient back with info. Thank you Best contact number: [phone] (mobile) Optimal time of day to reach caller: ANYTIME Additional comments/information from caller: None Note: Please do not reply to this message. Follow-up communication and further actions as a result of this message need to be communicated with the patient directly, if the patient is not active onMyChart. If the patient is active on MyChart, they will receive notification of the communication/outcome via YouCastrhart. documented in this encounter Plan of Treatment Upcoming Encounters Date Type Department Care Team (Late st Contact Info) Description 01/28/2025 11:00 AM EST [facility] Visit [facility] [address] [place] [address] Vanessa Birmingham APRN [address] [address] documented as of this encounter Visit Diagnoses Not on filedocumented in this encounter Additional Health Concerns Assessment Noted Time A fall risk assessment has been complete d for the patient 04/19/2024 9:42 AM EST A Body Mass Index follow-up plan has been documented for the patient 07/29/2024 11:43 AM EDT documented as of this encounter Care Teams Certified Procedural Coder Relationship Specialty Start Date End Date Ana Berumen PA [address] [place] [address] PCP - General 11/22/24 Vanessa Birmingham APRN [address] [facility] [place] [address] Nurse Practitioner Urology 04/19/24 documented as of this encounter
--- OUTSIDE RECORDS SUMMARY | 2024-12-02 09:05 | XMS_ITS | Encounter Summary ---
Author Organization Healthcare Address [address] [place] [address] Care Team Providers Care Computer Systems Software Architect Name Role Phone Alberto Choudhury MD Primary Care Provider [phone] Vanessa Birmingham SUPERVISOR POULTRY HATCHERY Unavailable [phone] Reason for Visit * Reason Onset Date Comments HCN Clinical Concern/Question 11/19/2024 Encounter Details Date Type Department Care Team (Late st Contact Info) Description 11/19/2024 Telephone [place] [facility] [address] [place] [address] Vanessa Birmingham, SUPERVISOR POULTRY HATCHERY [address] [place] [address] HCN Clinical Concern/Question Social History [...] encounter Miscellaneous Notes * Telephone Encounter - Jeremiah Lowry - 11/19/2024 4:00 PM EDT Clinical Concern/Question Reason for Call: She is in a lot of pain when she goes to the restroom. She is asking to be seen. Best contact number: [phone] (mobile) Optimal time of day to reach caller: ANYTIME Additional comments/information from caller: None Note: Please do not reply to this message. Follow-up communication and further actions as a result of this message need to be communicated with the patient directly, if the patient is not active onMyChart. If the patient is active on MyChart, they will receive notification of the communication/outcome via NetMinderhart. documented in this encounter Plan of Treatment Upcoming Encounters Date Type Department Care Team (Late st Contact Info) Description 01/28/2025 11:00 AM EST Office Visit [place] [facility] [address] [place] [address] Vanessa Birmingham, SUPERVISOR POULTRY HATCHERY [address] [place] [address] documented as of this encounter Results * Urinalysis, Microscopic (11/20/2024 3:39 PM EDT) RBC, Urine <1 0 to 3 /HPF LAB URINALYSIS - AUTOMATED METHOD 11/20/2024 5:02 PM EDT [facility] WBC, Urine 0 - 5 0 to 5 /HPF LAB URINALYSIS - AUTOMATED METHOD 11/20/2024 5:02 PM EDT [facility] Squamous Epithelial Cells 0 - 2 0 to 5 /HPF LAB URINALYSIS - AUTOMATED METHOD 11/20/2024 5:02 PM EDT [facility] Hyaline Casts 0 - 2 0 to 5 /LPF LAB URINALYSIS - AUTOMATED METHOD 11/20/2024 5:02 PM EDT [facility] Bacteria, Urine Negative Negative LAB URINALYSIS - AUTOMATED METHOD 11/20/2024 5:02 PM EDT [facility] Urine Urine specimen obtained by clean catch procedure / Unknown Non-blood Collection / Unknown 11/20/2024 3:39 PM EDT 11/20/2024 3:39 PM EDT Tiffani Alex APRN, [facility] URINE ORDERABLES Fin al Result Performing Organization Address [facility] Co de Phone Number [facility] [address] [place] [address] * (ABNORMAL) Urine Culture (11/20/2024 3:39 PM EDT) Culture <10,000 CFU/mL Staphylococcus species(A) 11/22/2024 8:15 AM EDT [facility] Urine Urine specimen obtained by clean catch procedure / Unknown Non-blood Collection / Unknown 11/20/2024 3:39 PM EDT 11/20/2024 3:39 PM EDT Narrative [facility] - 11/22/2024 8:15 AM EDT Organisms not identified due to low colony count with no indication of pyuria, dysuria, urethritis, hematuria, and/or pyelonephritis. us Tiffani Alex APRN, [facility] MICROBIOLOGY - GENER AL ORDERABLES Final Result Performing Organization Address [facility] Co de Phone Number [facility] [address] [place] [address] documented in this encounter Visit Diagnoses Diagnosis Recurrent UTI- Primary Urinary tract infection, site not specified documented in this encounter Additional Health Concerns Assessment Noted Time A fall risk assessment has been complete d for the patient 04/19/2024 9:42 AM EST A Body Mass Index follow-up plan has been documented for the patient 07/29/2024 11:43 AM EDT documented as of this encounter Care Teams Computer Systems Software Architect Relationship Specialty Start Date End Date Alberto Choudhury MD [address] [place] [address] PCP - General 06/26/20 11/21/24 Vanessa Birmingham APRN [address] [place] [address] Nurse Practitioner Urology 04/19/24 documented as of this encounter
--- OUTSIDE RECORDS SUMMARY | 2024-12-02 09:05 | XMS_ITS | Encounter Summary ---
Author Organization Healthcare Address [address] [place] [address] Care Team Providers Care Partner Integration Planner Name Role Phone VinnieCaydenmanuela Horn DIRECTOR OF PROGRAM MANAGEMENT Unavailable [phone] Ana Berumen Primary Care Provider [phone] Encounter Details Date Type Department Care Team (Latest Contact Info) Description 11/26/2024 Travel Social History Tobacco Use Types Packs/Day [...] on file documented as of this encounter Functional Status * Over the [...] Questionnaire -9 Score 0 11/26/2024 10:57 AM Adolph San * How difficult have these problems made it for you to do your work, take care of things at home, or get along with other people? Answer Date of Assessment Author Not difficult at all 11/26/2024 10:57 AM Adolph Albarran documented as of this encounter Plan of Treatment Upcoming Encounters Date Type Department Care Team (Late st Contact Info) Description 01/28/2025 11:00 AM EST Office [facility] [address] [place] [address] Vanessa Birmingham, DIRECTOR OF PROGRAM MANAGEMENT [address] [place] [address] documented as of this encounter [...] documented as of this encounter Care Teams Partner Integration Planner Relationship Specialty Start Date End Date Ana Berumen PA [address] [place] [address] PCP - General 11/22/24 Vanessa Birmingham APRN [address] [facility] [address] [place] [address] Nurse Practitioner Urology 04/19/24 documented as of this encounter
--- OUTSIDE RECORDS SUMMARY | 2024-12-02 09:05 | XMS_ITS | Encounter Summary ---
Author Organization Healthcare Address [address] [place] [address] Care Team Providers Care Tire Retreader Name Role Phone Vanessa Birmingham PRE SALES ARCHITECT Unavailable [phone] Ana Berumen Primary Care Provider [phone] Encounter Details Date Type Department Care Team (Late st Contact Info) Description 11/29/2024 Orders Only [facility] [address] [place] [address] Vanessa Birmingham, PRE SALES ARCHITECT [address] [place] [address] BV (bacterial vaginosis) (Primary Dx) Social History Tobacco Use Types Packs/Day Years [...] as of this encounter Miscellaneous Notes * Progress Notes - Vanessa Birmingham, PRE SALES ARCHITECT - 11/29/2024 8:23 AM EDT Resolve MDX 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 On doxycycline, flagyl sent documented in this encounter Plan of Treatment Upcoming Encounters Date Type Department Care Team (Late st Contact Info) Description 01/28/2025 11:00 AM EST Office Visit [facility] [address] [place] [address] Vanessa Birmingham APRN [id number] [place] [address] documented as of this encounter Visit Diagnoses Diagnosis BV (bacterial vaginosis)- Primary Unspecified vaginitis and vulvovaginitis documented in this encounter Additional Health Concerns Assessment Noted Time PHQ-9 Depression Total Score: 0 11/27/19 10:57 AM EDT A fall risk assessment has been complete d for the patient 11/26/2024 10:58 AM EDT A Body Mass Index follow-up plan has been documented for the patient 11/26/2024 11:42 AM EDT documented as of this encounter Care Teams Tire Retreader Relationship Specialty Start Date End Date Ana Berumen PA [address] [place] [address] PCP - General 11/22/24 Vanessa Birmingham APRN [address] [address] Nurse Practitioner Urology 04/19/24 documented as of this encounter
--- OUTSIDE RECORDS SUMMARY | 2024-12-02 09:05 | XMS_ITS | Clinical Summary ---
Author Organization Healthcare Address [address] [place] [address] Care Team Providers Care Blintze Roller Name Role Phone Vanessa Birmingham APRN Unavailable [phone] Ana Berumen Primary Care Provider [phone] Allergies Active Allergy Reactions Criticality Noted Date Comments Levofloxacin Hives Medium 08/10/2023 Medications estradiol (Estrace) 0.1 MG/GM vaginal cream USING FINGER TECHNIQUE DAILY FOR TWO WEEKS AND THEN TWICE WEEKLY VAGINALLY Active Vienva 0.1-20 MG-MCG tablet Take 1 tablet by mouth daily. 08/26/19 24 Active buPROPion XL (Wellbutrin XL) 300 MG 24 hr tablet 11/02/19 24 Active busPIRone (Buspar) 15 MG tablet Take 1 tablet (15 mg) by mouth 3 (three) times a day. 08/18/19 24 Active methenamine hippurate (Hiprex) 1 g tabletIndicatio ns:Recurrent UTI Take 1 tablet (1 g) by mouth 2 (two) times a day. 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 Take with a full glass of water and do not lie down for at least 30 minutes after 56 tablet 11/27/19 25 025 Active metroNIDAZOLE (Flagyl) 500 MG tabletIndicatio ns:BV (bacterial vaginosis) Take 1 tablet by mouth 2 times a day for 7 days. 14 tablet 11/30/19 25 025 Active lidocaine (Uro-Jet) 2 % gelIndications: Recurrent UTI Insert 1 Application into the urethra 3 (three) times a day. 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 Bacterial vaginosis - discussed diagnosis, treatment options. Pt desires metronidazole - use, side effects and risks discussed. Advised to abstain from alcohol while taking. Rx sent to pharmacy. She states that amoxicillin seems to have helped with her symptoms in the past. Discussed normal vaginal vitaly and environment. Explained that the balance is very important in the vagina and we sometimes mess up that balance with multiple medications. A list of lubricants and moisturizers used by most vulvar clinics was given to her. Urge incontinence 08/19/2022 Assessment & Plan (08/19/2022 10:41 AM EDT): U/A done today. Referral to urogyn for further evaluation and treatment placed. She'll call the office if she wants to schedule that appointment. Vulvar irritation 08/19/2022 Assessment & Plan (08/19/2022 10:39 AM EDT): Taught soak and seal: Advised to do a 5-10 minute sitz bath/soak in lukewarm water with nothing added 2-3 times/day. Pat the area dry (do not rub) and put petroleum jelly (Vaseline, etc.) on the outside skin between the thighs. Recommended to be done for 5-7 days to promote skin healing but may be repeated as needed. Vulvar skin care guidelines were discussed with the patient and a written copy was given to her. Discussed use of A&D ointment/Rober's Butt Paste to act as a protective barrier from the moisture. Pt will call if continues to have problems. 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 11/26/2024 Travel 11/22/2024 Travel 11/22/[address] [address] Tiffani Alex APRN, DNP [facility] Clinical Concern/Question 11/22/2024 Results Follow-Up [address] [address] Tiffani Alex APRN, DNP 11/20/2024 Travel 11/19/[address] [address] Vanessa Birmingham APRN [facility] Clinical Concern/Question from Last 3 Months Immunizations Immunization Administration Dates Next Due Rho (D) Immune Globulin 01/15/2019 Family History Medical History Relation Name Comments Arthritis Mother Hypertension Mother Relation Name Status Comments Mother Social History Tobacco Use Types Packs/Day Years Used Date Smoking Tobacco: Former Cigarettes Smokeless Tobacco: Former Tobacco Cessation:Counseling Given: Not Answered Comments:currently vapes daily Alcohol Use Standard Drinks/Week Comments Not Currently [...] F) 11/26/2024 10:56 AM EDT Respiratory Rate 16 11/06/2023 8:38 AM EDT Oxygen Saturation 100% 11/26/2024 10:56 AM EDT Inhaled Oxygen Concentration - - Weight 79 kg (174 lb 2.6 oz) 11/26/2024 10:56 AM EDT Height 170.2 cm (5' 7 ) 11/26/2024 10:56 AM EDT Body Mass Index 27.28 11/26/2024 10:56 AM EDT Plan of Treatment Upcoming Encounters Date Type Department Care Team (Late st Contact Info) Description 01/28/2025 11:00 AM EST Office Visit [facility] [address] [place] [address] Vanessa Birmingham APRN [address] [place] [address] Health Maintenance Due Date Last Done Comments [facility]-HIV Screening 1986 [facility]-Hepatitis C Screening 1986 [facility]-Infant/Child/Adol SDOH Screenings 1986 [facility]-Varicella Vaccines (1 of 2 - 13+ 2-dose series) 05/13/1999 [facility]- SDOH Screenings 2004 [facility]-Adult SDOH Screenings 2004 [facility]-DTaP,Tdap,and Td Vaccines (1 - Tdap) 2005 [facility]-Hepatitis B Vaccines (1 of 3 - 19+ 3-dose series) 2005 [facility]-Pap Smear 05/13/2007 HPV Vaccines (1 - 3-dose SCDM series) 2013 [facility]-Cervical Cancer Screening 2016 [facility]-HPV/Cotest 2016 [id number] Vaccine ( season) 2024 01/31/2021, 03/19/2020, 02/27/2020 [facility]-Influenza Vaccine (#1) 2024 [facility]-Depression Screening 11/26/2025 11/26/2024, 11/13 [facility]-Zoster Vaccines (1 of 2) 2036 [facility]-Obesity Intervention Completed 025, 07/29/2024, 12/19/2023, Additional history exists [facility]-HIB Vaccines Aged Out No longer e ligible based on patient's age to complete this topic [facility]-Hepatitis A Vaccines Aged Out No longer eligible based on patient's age to complete this topic [facility]-IPV Vaccines Aged Out No longer e ligible based on patient's age to complete this topic [facility]-Pneumococcal Vaccine: Pediatrics (0 to 5 Years) and At-Risk Patients (6 to 49 Years) Aged Out No longer eligible based on patient's age to complete this topic [facility]-Rotavirus Vaccines Aged Out No lo nger eligible based on patient's age to complete this topic Procedures Procedure Name Priority Date/Time Associated Diagnosis Comments UREAPLASMA SPECIES AND MYCOPLASMA HOMINIS CULTURE (SO) Routine 11/22/2024 4:21 PM EDT Recurrent UTI URINALYSIS, MICROSCOPIC Routine 11/20/2024 3:39 PM EDT Recurrent UTI URINE CULTURE Routine 11/20/2024 3:39 PM EDT Recurrent UTI from Last 3 Months Results * Urinalysis, Microscopic (11/20/2024 3:39 PM EDT) RBC, Urine <1 0 to 3 /HPF LAB URINALYSIS - AUTOMATED METHOD 11/20/2024 5:02 PM EDT [facility] WBC, Urine 0 - 5 0 to 5 /HPF LAB URINALYSIS - AUTOMATED METHOD 11/20/2024 5:02 PM EDT [facility] Squamous Epithelial Cells 0 - 2 0 to 5 /HPF LAB URINALYSIS - AUTOMATED METHOD 11/20/2024 5:02 PM EDT [facility] Hyaline Casts 0 - 2 0 to 5 /LPF LAB URINALYSIS - AUTOMATED METHOD 11/20/2024 5:02 PM EDT [facility] Bacteria, Urine Negative Negative LAB URINALYSIS - AUTOMATED METHOD 11/20/2024 5:02 PM EDT [facility] Urine Urine specimen obtained by clean catch procedure / Unknown Non-blood Collection / Unknown 11/20/2024 3:39 PM EDT 11/20/2024 3:39 PM EDT us Tiffani Alex APRN, DNP LAB URINE ORDERABLES Fin al Result [facility] [address] [place] [address] * (ABNORMAL) Urine Culture (11/20/2024 3:39 PM EDT) Culture <10,000 CFU/mL Staphylococcus species(A) 11/22/2024 8:15 AM EDT [facility] Urine Urine specimen obtained by clean catch procedure / Unknown Non-blood Collection / Unknown 11/20/2024 3:39 PM EDT 11/20/2024 3:39 PM EDT Narrative [facility] - 11/22/2024 8:15 AM EDT Organisms not identified due to low colony count with no indication of pyuria, dysuria, urethritis, hematuria, and/or pyelonephritis. Tiffani Alex APRN, DNP LAB MICROBIOLOGY - GENER AL ORDERABLES Final Result [facility] [address] [place] [address] from Last 3 Months Insurance [facility] Care Teams Blintze Roller Relationship Specialty Start Date End Date Ana Berumen PA [address] [place] [address] PCP - General 11/22/24 Vanessa Birmingham APRN [address] [place] [address] Nurse Practitioner Urology 04/19/24
--- OUTSIDE RECORDS SUMMARY | 2024-12-02 09:06 | XMS_ITS | Encounter Summary ---
Author Organization Healthcare Address [address] [place] [address] Care Team Providers Care Boiler Washer Name Role Phone Vanessa Birmingham APRN Unavailable [phone] Ana Berumen Primary Care Provider [phone] Encounter Details Date Type Department Care Team (Late Contact Info) Description 11/22/2024 Results Follow-Up [facility] [address] [place] [address] Tiffani Alex APRN, DNP [address] [place] [address] Social History Tobacco Use Types Packs/Day Years [...] Encounters Date Type Department Care Team (Late Contact Info) Description 01/28/2025 11:00 AM EST Office Visit [facility] [address] [place] [address] Vanessa Birmingham APRN [address] [place] [address] Pending Results Name Type Priority Associated Diagnoses Date /Time Mycoplasma / ureaplasma culture Lab Routine Recurrent UTI 11/22/2024 4:21 PM EDT documented as of this encounter Visit Diagnoses Diagnosis BV (bacterial vaginosis)- Primary Unspecified vaginitis and vulvovaginitis Recurrent UTI Urinary tract infection, site not specified documented in this encounter Additional Health Concerns Assessment Noted Time A fall risk assessment has been complete d for the patient 04/19/2024 9:42 AM EST A Body Mass Index follow-up plan has been documented for the patient 07/29/2024 11:43 AM EDT documented as of this encounter Care Teams Boiler Washer Relationship Specialty Start Date End Date Ana Berumen PA [address] [place] [address] PCP - General 11/22/24 Vanessa Birmingham APRN [address] [place] [address] Nurse Practitioner Urology 04/19/24 documented as of this encounter
--- OUTSIDE RECORDS SUMMARY | 2024-12-02 09:06 | XMS_ITS | Encounter Summary ---
Author Organization Healthcare Address [address] [place] [address] Care Team Providers Care Vice President Tax Name Role Phone Alberto Choudhury MD Primary Care Provider [phone] Vanessa Birmingham APRN Unavailable [phone] Encounter Details Date Type Department Care Team (Latest Contact Info) Description 11/20/2024 Travel Social History Tobacco Use Types Packs/Day [...] [address] [place] [address] Vanessa Birmingham, FEED[employer] SWITCHBOARD OPERATOR [address] [place] [address] documented as of this encounter Visit Diagnoses Not on filedocumented in this encounter Additional Health Concerns Assessment Noted Time A fall risk assessment has been complete d for the patient 04/19/2024 9:42 AM EST A Body Mass Index follow-up plan has been documented for the patient 07/29/2024 11:43 AM EDT documented as of this encounter Care Teams Vice President Tax Relationship Specialty Start Date End Date Alberto Choudhury MD [address] [place] [address] PCP - General 06/26/20 11/21/24 Vanessa Birmingham, FEEDER SWITCHBOARD OPERATOR [address] [facility] [address] [place] [address] Nurse Practitioner Urology 04/19/24 documented as of this encounter
== END 2024-12-02 23:59 | disposition home or self-care (01) ==
LOC: RAD 08:51
PROVIDERS: PCP Physician Assistant; Visit Provider Obstetrics & Gynecology
DX: N60.81 Other benign mammary dysplasias of right breast (principal); N63.11 Unspecified lump in the right breast, upper outer quadrant; N63.15 Unspecified lump in the right breast, overlapping quadrants
CPT/HCPCS: 76641